=== PATIENT | female | born 1935 | race Caucasian/White ===

== ENCOUNTER 2017-06-01 18:53 | Emergency (ER) | payer MEDICARE ==
[2016-09-27 12:42] VITALS: BMI 19.8
[~2017-06-01 18:53] MED LIST: ACETAMINOPHEN325 MG PO; AFRIN NASAL SPR15 ML NASAL; ALBUTEROL2.5 MG/3 M UPD; ASPIRIN81 MG PO; ATIVAN0.5 MG PO; ATIVAN1 MG PO; BAYER CHEWABLE81 MG PO; BENAZEPRIL HCL10 MG PO; BENZONATATE200 MG PO; BROVANA15 MCG/2 M INH; CELEXA10 MG PO; CITRACAL + D E1 EACH PO; COLACE100 MG PO; DOXYCYCLINE HY100 M2 PO; DULCOLAX10 MG/SUPP RC; FEMARA2.5 MG PO; IMODIUM2 MG PO; IPRAT-ALBUT 0.5-3 ML UPD; KEFLEX250 MG PO; LOTREL 5/10 MG1 CAP PO; MUCINEX DM ER1 EAC1 PO; NEXIUM20 MG PO; NORVASC5 MG PO; PLAVIX75 MG PO; PRAVACHOL20 MG PO; PRAVACHOL80 MG PO; PROTONIX40 MG PO; PULMICORT0.5 MG/21 UPD; SALINE NASAL SP45 ML NASAL; SINGULAIR10 MG PO; STERAPRED 5MG 125 MG PO; TENORMIN25 MG PO
== END 2017-06-01 21:15 | disposition home or self-care (01) ==
LOC: D.ER 18:53
DX: G43.909 Migraine, unspecified, not intractable, without status migrainosus (principal); I10 Essential (primary) hypertension; Z86.73 Personal history of transient ischemic attack (TIA), and cerebral infarction without residual deficits

== ENCOUNTER 2018-05-21 07:28 | Inpatient (IN) | payer MEDICARE ==
[~2018-05-21] VITALS: Ht 167.6 cm; Wt 56.7 kg
--- NOTE | ~2018-05-21 | MORECARE ---
CASE MANAGEMENT DISCHARGE SUMMARY PATIENT: GODWIN BIRD UNIT: [id number] ADM DATE: 05/21/18 AGE: 83 : 36 SEX: F ROOM/BED: D.5272 AUTHOR: DOROTHEA, SHOPFITTER PHYSICIAN: REFERRING PHYSICIAN: JAREN CRUZ MD DATE OF SERVICE: 05/21/18 Discharge Plan Patient Name: GODWIN BIRD Facility: [facility]:[place] : 1935 Planned Disposition: Home Anticipated Discharge Date: 05/28/18 Discharge Date: Expected LOS: 7 Initial Reviewer: [email or web address] Initial Review Date: 05/28/2018 Generated: 05/28/18 5:16 pm Comments DCP- Discharge Planning Updated by [id number]: Crow Simental on 05/28/18 3:[address] Patient Name: GODWIN BIRD Admission Status: ER Accout number: [id number] Admission Date: 05-21-2018 : 1935 Admission Diagnosis:PNEUMONIA, UNSPECIFIED ORGANISM Attending: JAREN CRUZ Current LOS: 7 Anticipated DC Date: 05-28-2018 Planned Disposition: Home Primary Insurance: [employer] CHOICE PPO MCR ADVANT Discharge Planning Comments: * Is the patient Alert and Oriented? Yes 0 * How many steps to enterexit or inside your home? NONE 0 * PCP DR. STEIN 0 * Pharmacy [facility] 0 * Preadmission Environment Home with Family 0 * ADLs Partial Dependent 0 * Partial ADLs (Assistance needed) Medication Management 0 * Equipment Cane Walker 0 * Other Equipment [employer] - MEDICAL EQUIPMENT PROVIDER 0 * List name and contact numbers for known caregivers / representatives who currently or will assist patient after discharge: GODWIN GERMAN, DTR, 0 * Verbal permission to speak to the caregivers and representatives has been obtained from the patient. Yes 0 * Community resources currently utilized None 0 * Please name any agencies selected above. NONE 0 * Additional services required to return to the preadmission environment? No 0 * Can the patient safely return to the preadmission environment? Yes 0 * Has this patient been hospitalized within the prior 30 days at any hospital? No 0 CM MET WITH PT IN ROOM TO DISCUSS DISCHARGE PLANNING AND NEEDS. GODWIN BIRD provided verbal consent to discuss current and ongoing needs with/in the presence of: DAUGHTER, GODWIN. PT REPORTS LIVING AT HOME INDEPENDENTLY WITH HER BROTHER IN LAW; PT'S DAUGHTER ARRANGES MEDICATIONS IN PILL MINDER BOX AND PT TAKES HER MEDICATIONS INDEPENDENTLY AT HOME. PT HAS CANE AND WALKER FROM [facility]. PT HAS NO OUTSIDE SERVICES ASSISTING IN THE HOME. CM DISCUSSED AVAILABILITY OF HOME HEALTH, REHAB SERVICES AND MEDICAL EQUIPMENT. PT DENIES DISCHARGE NEEDS, REPORTS HER DAUGHTER WILL PICK HER UP FOR DISCHARGE HOME. IMPORTANT MESSAGE FROM MEDICARE PROVIDED AND EXPLAINED. CHART REVIEWED, PT HAS NO NEBULIZER, DISCHARGING HOME ON NEBULIZED MEDICATIONS. CM SPOKE TO PT AND DAUGHTER IN ROOM, THEY WILL EITHER PICK THE MACHINE UP FROM [facility] OR HAVE IT DELIVERED TO HOME; PT WILL MEDICAL SCREENER MEDICATIONS FROM HER PHARMACY. CM RECEIVED ORDER FOR NEBULIZER, CALLED [facility], , SPOKE TO ROBERT WHO WILL CALL PT'S DAUGHTER TO ARRANGE DELVERY OF NEBULIZER TODAY. CM FA[facility]ED [facility] AT [phone]. Perfect Bind Machine Operator: Crow Simental : DCPIA - Discharge Planning Initial Assessment Updated by [id number]: Crow Simental on 05/28/18 4:12 pm * Is the patient Alert and Oriented? Yes * How many steps to enterexit or inside your home? NONE * PCP DR. STEIN * Pharmacy [facility] * Preadmission Environment Home with Family * ADLs Partial Dependent * Partial ADLs (Assistance needed) Medication Management * Equipment Cane Walker * Other Equipment [employer] - MEDICAL EQUIPMENT PROVIDER * List name and contact numbers for known caregivers / representatives who currently or will assist patient after discharge: GODWIN GERMAN, JADONR, * Verbal permission to speak to the caregivers and representatives has been obtained from the patient. Yes * Community resources currently utilized None * Please name any agencies selected above. NONE * Additional services required to return to the preadmission environment? No * Can the patient safely return to the preadmission environment? Yes * Has this patient been hospitalized within the prior 30 days at any hospital? No External Providers External Provider: [facility] [place] [facility] Contact Date: 05/28/2018 Service Request Date: Service Type: Resolution: Reviewer: Comments: Coverage Notice Reviewer: [id number] - Crow Simental Notice Issued Date-Time: 05/28/2018 12:40 Notice Type: IM Discharge Notice Notice Delivered To: Patient Relationship to Patient: Manager Relocation Name: Delivery Method: HAND - Hand Delivered Deepthi Days: Prior Verbal Notification: Recipient Understood Notice: Yes Recipient Signature: Yes Med Rec Note Co-signed by Attending: Coverage Notice Comment: Patient Name: GODWIN BIRD Page [id number] All edits/amendments must be made on the electronic document DICTATION DATE: 05/28/181614 CHARGING CRANE OPERATOR: 05/28/181614 RPT#: [id number] DC DATE: STATUS: ADM IN [facility] [address] [place] [address] END OF REPORT
--- NOTE | ~2018-05-21 | CN ---
PATIENT NAME:GODWIN BIRD MEDICAL RECORD: [id number] : 37 LOCATION:D. D.2122 ADMIT DATE: 05/21/18 ACCOUNT: [id number] CONSULTING PHYSICIAN: ZIGGY MEDINA MD REFERRING PHYSICIAN: JAREN CRUZ MD DATE OF CONSULTATION: 05/21/2018 CONSULT REQUESTING PHYSICIAN: Jaren Cruz MD REASON FOR CONSULTATION: Pneumonia, left lower lobe. HISTORY OF PRESENT ILLNESS: Ms. Bird is an 83-year-old female. She is complaining of worsening shortness of breath for the last few days. She has a fever. She is coughing. The cough is productive of white yellow color sputum production. There is no hemoptysis. No wheezing. There is no associated nausea or vomiting. REVIEW OF SYSTEMS: As in history of present illness. PAST MEDICAL HISTORY: 1. History of CA of the lung, of the right upper lobe. 2. History of bilateral CA of breast. 3. History of cervical cancer. 4. Gastroesophageal reflux disease. 5. Ex-smoker. 6. History of cerebrovascular accident. PAST SURGICAL HISTORY: 1. She has a right upper lobe lobectomy. 2. She has bilateral mastectomy. 3. Lymph node resection. ALLERGIES: SHE IS ALLERGIC TO CIPRO AND LEVAQUIN. MEDICATIONS: The Finance Scholar is reviewed. PERSONAL AND SOCIAL HISTORY: The patient is an ex-smoker. She is a nondrinker. FAMILY HISTORY: Noncontributory. PHYSICAL EXAMINATION: GENERAL: The patient is lying comfortably. She is not in acute distress. VITAL SIGNS: The blood pressure is 104/51, pulse is 75, respiration is 18, temperature 98.6, SpO2 of 94% on 2 liters nasal cannula. HEENT: Conjunctivae are pink. Sclerae are not icteric. NECK: Supple. No JVD. CHEST: Excursion is minimal on both sides. There are crackles at the right base. There are wheeze on forceful expiration. HEART: Rhythm regular, normal sound, no murmur. ABDOMEN: Soft, bowel sounds present. No hepatosplenomegaly. RECTAL: Deferred. EXTREMITIES: No cyanosis, no clubbing, no pedal edema. SKIN: Warm, normal turgor. CENTRAL NERVOUS SYSTEM: The patient is awake and alert. There is no obvious cranial nerve abnormality. The gait was not tested. CONSULT REPORT [id number] [facility] DATA: CBC: The WBC is 15.9, hemoglobin 11.7, hematocrit 35.5, the platelet count is 380. Chemistry: Sodium 134, potassium is 4.3, BUN is 12, and creatinine 0.3. IMPRESSION: 1. Acute hypoxic respiratory failure. 2. Pneumonia, left lower lobe, most likely community-acquired pneumonia. 3. Leukocytosis. 4. Acute cough. 5. Ex-smoker, suspect chronic obstructive pulmonary disease. 6. History of carcinoma of the lung, of the right upper lobe status post right upper lobe lobectomy. 7. Gastroesophageal reflux disease. RECOMMENDATION: Continue Zithromax IV, Rocephin IV. Start on albuterol/ipratropium nebulizer and start Brovana and budesonide nebulizer. Mucinex DM 2 tablets b.i.d. Follow up labs and chest radiograph. Dr. Cruz, thank you for involving me in the care of Ms. Bird. TRANSINT:[id number] Voice Confirmation ID: [id number] DOCUMENT ID: [id number] ZIGGY MEDINA MD at 1110 CC: [id number] DICTATION DATE: 05/21/18 1626 SECURITY SYSTEM ADMINISTRATOR: 05/21/18 1726 ADM IN [place] [id number] [place] [address]
[~2018-05-21 07:28] MED LIST changes: -ATIVAN0.5 MG PO; +NEXIUM40 MG PO
[2018-05-21 08:53] LABS: ALBUMIN 2.4 g/dL (3.4-5.0); ALKALINE PHOSPHATASE 121 U/L (46-116); ALT (SGPT) 19 U/L (10-68); BILIRUBIN - TOTAL 0.84 mg/dL (0.2-1.3); CALC OSMOLALITY 267 mosm/kg (275-300); CALCIUM 8.1 mg/dL (8.5-10.1); CARBON DIOXIDE 22.9 mmol/L (21.0-32.0); CHLORIDE - SERUM 101 mmol/L (98-107); CKMB 0.7 U/L (0.0-3.6); CREATINE KINASE 99 UL (21-215); CREATININE - SERUM 0.7 mg/dL (0.6-1.3); GLUCOSE 107 mg/dL (74-106); POTASSIUM - SERUM 4.3 mmol/L (3.5-5.1); PRO BNP 1833 pg/mL (0-450); PROTEIN - SERUM 6.1 g/dL (6.4-8.2); SODIUM 134 mmol/L (136-145); TROPONIN-I < 0.017 ng/mL (0.000-0.060); UREA NITROGEN 12 mg/dL (7-18); eGFR NON AFRICAN AMERICAN 85 mL/min (90-120)
[2018-05-21 08:58] LABS: BASOPHILS 0.4 % (0-2); EOSINOPHILS 0.3 % (0-7); HEMATOCRIT 35.5 % (36.0-48.0); HEMOGLOBIN 11.7 g/dL (12-16); IMMATURE GRANULOCYTES 1.1 % (0-5); LYMPHOCYTES 8.7 % (15-50); MCH 25.7 pg (26.0-34.0); MEAN PLATELET VOLUME 9.2 fL (7.4-10.4); NEUTROPHILS 70.5 % (40-80); RBC 4.55 10x6/uL (4.00-5.40); RDW 15.8 % (11.5-14.5); WBC 15.9 10x3/uL (4.8-10.8)
[2018-05-21 09:02] LABS: PLATELET COUNT 380 10x3/uL (130-400)
[2018-05-21 09:03] LABS: APTT 22.5 SECONDS (22.8-39.4); INR 1.07 (0.85-1.17); PROTIME 13.5 SECONDS (11.6-15.0)
[2018-05-21 11:59] VITALS: BP 113/54
[2018-05-21] MEDS ORDERED: PRAVACHOL80 MG PO (12:29)
[2018-05-21] MEDS ORDERED: ALENDRONATE SOD70 MG PO (12:31)
[2018-05-21 12:40] VITALS: BP 99/47; BMI 21.6
[2018-05-21 15:56] VITALS: BP 109/70
[2018-05-21 21:52] VITALS: BP 87/43
[2018-05-22 01:17] VITALS: BP 94/52
[2018-05-22 04:00] VITALS: BP 98/50
[2018-05-22 06:00] LABS: BASOPHILS 0.4 % (0-2); EOSINOPHILS 0.4 % (0-7); HEMATOCRIT 30.5 % (36.0-48.0); IMMATURE GRANULOCYTES 1.2 % (0-5); LYMPHOCYTES 11.8 % (15-50); MCH 25.5 pg (26.0-34.0); MCHC 32.8 g/dL (31.0-37.0); MCV 77.8 fL (80.0-100.0); MEAN PLATELET VOLUME 8.8 fL (7.4-10.4); MONOCYTES 15.5 % (2-11); NEUTROPHILS 70.7 % (40-80); PLATELET COUNT 341 10x3/uL (130-400); RBC 3.92 10x6/uL (4.00-5.40)
[2018-05-22 06:17] LABS: CARBON DIOXIDE 25.7 mmol/L (21.0-32.0); CREATININE - SERUM 0.8 mg/dL (0.6-1.3); POTASSIUM - SERUM 3.7 mmol/L (3.5-5.1)
[2018-05-22 12:39] VITALS: Ht 167.6 cm; Wt 56.7 kg
[2018-05-22 15:57] VITALS: BP 101/54
[2018-05-22 21:32] VITALS: BP 93/59
[2018-05-23 01:30] VITALS: BP 115/65
[2018-05-23 06:03] VITALS: BP 113/58
[2018-05-23 08:26] VITALS: BP 104/53
[2018-05-23 12:27] VITALS: BP 101/52
[2018-05-23 16:40] VITALS: BP 111/65
[2018-05-23 21:17] VITALS: BP 110/60
[2018-05-24 01:26] VITALS: BP 111/59
[2018-05-24 05:39] VITALS: BP 109/56
[2018-05-24 08:00] VITALS: BP 125/74
[2018-05-24 08:57] VITALS: BP 130/69
[2018-05-24 11:51] VITALS: BP 139/69
[2018-05-24 15:51] VITALS: BP 126/78
[2018-05-25 04:00] VITALS: BP 113/60
[2018-05-25 08:05] VITALS: BP 104/57
[2018-05-25 11:18] VITALS: BP 95/56
[2018-05-25 15:14] VITALS: BP 117/67
[2018-05-25 20:30] VITALS: BP 124/67
[2018-05-26 00:30] VITALS: BP 116/64
[2018-05-26 04:30] VITALS: BP 121/68
[2018-05-26 08:46] VITALS: BP 139/72
[2018-05-26 11:45] VITALS: BP 111/60
[2018-05-26 15:59] VITALS: BP 116/65
[2018-05-26 20:00] VITALS: BP 117/51
[2018-05-27] VITALS: BP 124/60
[2018-05-27 05:58] LABS: BASOPHILS 0.4 % (0-2); EOSINOPHILS 1.9 % (0-7); HEMATOCRIT 30.7 % (36.0-48.0); HEMOGLOBIN 10.1 g/dL (12-16); IMMATURE GRANULOCYTES 2.1 % (0-5); LYMPHOCYTES 15.2 % (15-50); MCHC 32.9 g/dL (31.0-37.0); MCV 78.9 fL (80.0-100.0); MEAN PLATELET VOLUME 8.6 fL (7.4-10.4); MONOCYTES 9.5 % (2-11); NEUTROPHILS 70.9 % (40-80); RBC 3.89 10x6/uL (4.00-5.40); WBC 13.5 10x3/uL (4.8-10.8)
[2018-05-27 06:10] LABS: PLATELET COUNT 446 10x3/uL (130-400)
[2018-05-27 06:19] LABS: CALC OSMOLALITY 267 mosm/kg (275-300); CALCIUM 8.3 mg/dL (8.5-10.1); CARBON DIOXIDE 29.9 mmol/L (21.0-32.0); CHLORIDE - SERUM 102 mmol/L (98-107); CREATININE - SERUM 0.6 mg/dL (0.6-1.3); GLUCOSE 102 mg/dL (74-106); POTASSIUM - SERUM 3.8 mmol/L (3.5-5.1); SODIUM 135 mmol/L (136-145); UREA NITROGEN 7 mg/dL (7-18); eGFR NON AFRICAN AMERICAN > 90 mL/min (90-120)
[2018-05-27 06:37] VITALS: BP 122/62
[2018-05-27 07:30] VITALS: BP 139/73
[2018-05-27 11:00] VITALS: BP 130/61
[2018-05-27 15:47] VITALS: BP 112/75
[2018-05-27 20:00] VITALS: BP 118/56
[2018-05-28] VITALS: BP 122/60
[2018-05-28 04:00] VITALS: BP 100/38
[2018-05-28 04:42] LABS: BASOPHILS 0.7 % (0-2); EOSINOPHILS 2.4 % (0-7); HEMATOCRIT 30.7 % (36.0-48.0); HEMOGLOBIN 10.1 g/dL (12-16); IMMATURE GRANULOCYTES 1.7 % (0-5); LYMPHOCYTES 19.2 % (15-50); MCHC 32.9 g/dL (31.0-37.0); MCV 78.9 fL (80.0-100.0); MEAN PLATELET VOLUME 8.3 fL (7.4-10.4); MONOCYTES 8.5 % (2-11); NEUTROPHILS 67.5 % (40-80); PLATELET COUNT 431 10x3/uL (130-400); RBC 3.89 10x6/uL (4.00-5.40); RDW 15.9 % (11.5-14.5); WBC 10.8 10x3/uL (4.8-10.8)
[2018-05-28 05:05] LABS: CALC OSMOLALITY 269 mosm/kg (275-300); CALCIUM 8.3 mg/dL (8.5-10.1); CARBON DIOXIDE 28.6 mmol/L (21.0-32.0); CHLORIDE - SERUM 102 mmol/L (98-107); CREATININE - SERUM 0.7 mg/dL (0.6-1.3); GLUCOSE 105 mg/dL (74-106); POTASSIUM - SERUM 3.9 mmol/L (3.5-5.1); SODIUM 136 mmol/L (136-145); UREA NITROGEN 8 mg/dL (7-18); eGFR NON AFRICAN AMERICAN 85 mL/min (90-120)
[2018-05-28 07:57] VITALS: BP 112/59
[2018-05-28] MEDS ORDERED: IPRAT-ALBUT 0.5-3 ML INH (11:12)
[2018-05-28 12:02] VITALS: BP 100/56
== END 2018-05-28 17:30 | disposition home or self-care (01) | DRG 193 ==
LOC: D.ER 07:28 → D.EDHOLD 10:23 → D.M2 10:23
PROVIDERS: Family Medicine; Internal Medicine Nephrology
DX: J18.9 Pneumonia, unspecified organism (principal); J96.01 Acute respiratory failure with hypoxia; J44.0 Chronic obstructive pulmonary disease with (acute) lower respiratory infection; J98.11 Atelectasis; E78.5 Hyperlipidemia, unspecified; R13.10 Dysphagia, unspecified; K21.9 Gastro-esophageal reflux disease without esophagitis; D64.9 Anemia, unspecified; I71.4 Abdominal aortic aneurysm, without rupture; Z85.3 Personal history of malignant neoplasm of breast; Z85.41 Personal history of malignant neoplasm of cervix uteri; Z85.118 Personal history of other malignant neoplasm of bronchus and lung; Z86.73 Personal history of transient ischemic attack (TIA), and cerebral infarction without residual deficits

== ENCOUNTER → 2018-07-07 07:55 | Outpatient (CLI) | payer MEDICARE ==
[2018-05-22 12:39] VITALS: BMI 21.6
[~2018-07-07 07:55] MED LIST changes: +ALENDRONATE SOD70 MG PO; +IPRAT-ALBUT 0.5-3 ML INH
== END | disposition home or self-care (01) ==
LOC: D.RT 07:55
DX: J18.9 Pneumonia, unspecified organism (principal); J44.1 Chronic obstructive pulmonary disease with (acute) exacerbation

== ENCOUNTER 2018-11-26 17:13 | Inpatient (IN) | payer MEDICARE ==
[~2018-11-26] VITALS: Ht 152.4 cm; Wt 56.8 kg
[2018-11-26] MEDS ORDERED: MUCINEX DM ER1 EAC1 PO (17:26)
[2018-11-26] MEDS ORDERED: TESSALON PERLE100 MG PO (17:27)
[2018-11-26] MEDS ORDERED: PULMICORT0.5 MG/21 INH (17:27)
[2018-11-26] MEDS ORDERED: SINGULAIR10 MG PO (17:27)
[2018-11-26] MEDS ORDERED: FUROSEMIDE20 MG PO (17:28)
[2018-11-26] MEDS ORDERED: K-TAB10 MEQ PO (17:28)
[2018-11-26] MEDS ORDERED: VITAMIN D2000 UNIT PO (17:29)
[2018-11-26 18:20] LABS: MCHC 26.5 g/dL (31.0-37.0); MCV 55.4 fL (80.0-100.0); MEAN PLATELET VOLUME 8.9 fL (7.4-10.4); RBC 3.61 10x6/uL (4.00-5.40); RDW 20.8 % (11.5-14.5); WBC 7.9 10x3/uL (4.8-10.8)
--- NOTE | 2018-11-26 18:20 | NUR ---
LAB CALLED OF CRITIAL VALUE HEMATOCRIT 20.0 HEMOGLOBIN 5.3.
[2018-11-26 18:28] LABS: HEMOGLOBIN 5.3 g/dL (12-16); MCH 14.7 pg (26.0-34.0); PLATELET COUNT 570 10x3/uL (130-400)
[2018-11-26 18:31] LABS: ALBUMIN 3.5 g/dL (3.4-5.0); ANION GAP 17.6 mmol/L (8-16); BILIRUBIN - TOTAL 0.4 mg/dL (0.2-1.3); CALCIUM 8.7 mg/dL (8.5-10.1); CARBON DIOXIDE 22.8 mmol/L (21.0-32.0); POTASSIUM - SERUM 4.4 mmol/L (3.5-5.1); PROTEIN - SERUM 7.4 g/dL (6.4-8.2)
[2018-11-26 18:34] LABS: IMMATURE GRANULOCYTES 0.1 % (0-5)
[2018-11-26 19:22] LABS: LYMPHOCYTES 28 % (15-50); MONOCYTES 1 % (2-11); NEUTROPHILS 71 % (40-80)
[2018-11-26 19:23] LABS: ANISOCYTOSIS 1+; PLATELET ESTIMATE INCREASED; POLYCHROMASIA 1+
[2018-11-26 19:25] LABS: EOSINOPHILS 0 % (0-7)
[2018-11-26 19:26] LABS: BASOPHILS 0 % (0-2)
[2018-11-26 19:28] LABS: % SATURATION 2 % (15-55); IRON 12 ug/dl (35-150); TOTAL IRON BIND CAPACITY 568 ug/dl (260-445)
[2018-11-26 19:29] LABS: UNSAT IRON BIND CAPACITY 556 ug/dl (150-375)
--- NOTE | 2018-11-26 19:42 | NUR ---
PT REPORTS SHE IS COLD, PT GIVEN BLANKET, DENIES ANY FURTHER NEEDS AT THIS TIME. PT'S DAUGHTER AT BEDSIDE. WILL CONTINUE TO MONITOR.
[2018-11-26 19:45] LABS: FERRITIN 5 ng/mL (3-244); LDH 287 U/L (81-234)
--- NOTE | 2018-11-26 20:26 | NUR ---
ATTEMTPED TO CALL REPORT TO FLOOR, PLACED ON HOLD FOR OVER 5 MIN, WILL TRY AGAIN LATER.
--- NOTE | 2018-11-26 22:00 | NUR ---
PATIENT ARRIVED TO FLOOR VIA GURNEY. PATIENT ABLE TO WAOK FROM GURNEY TO BED. PATIENT IS ALERT AND ORIENTED. RESPIRATIONS ARE EVEN AND UNLABORED. PATIENT ORDERED 3 UNITS PRBC. FIRST UNIT STARTED IN ER AND INFUSING ON ARRIVAL. NO S/S OF DISTRESS. NO C/O PAIN. CALL LIGHT WITHIN REACH. WILL CPOC.
[2018-11-26 22:41] VITALS: BP 134/72; BMI 19.5
--- NOTE | 2018-11-26 23:50 | NUR ---
CALLED AND SPOKE WITH DR. DEB WATERS GIVEN TO RESTART HS MEDS. 1 MG ATIVAN, 80 MG PRAVASTATIN, 10 MG SINGULAR.
[2018-11-27] VITALS (8 sets, daily range): BP systolic 112–139; BP diastolic 63–79; Ht 152.4 cm; Wt 56.8 kg
--- NOTE | 2018-11-27 00:30 | NUR ---
2ND UNIT OF PRBC INFUSING. VITALS STABLE. PATIENT IS ALERT AND ORIENTED. RESPIRATIONS ARE EVEN AND UNLABORED. HS MEDS GIVEN. PATIENT DENIES NEEDS AT THIS TIME. CALL LIGHT WITHIN REACH. WILL CPOC.
--- NOTE | 2018-11-27 03:21 | NUR ---
3RD UNIT OF PRBC TRANSFUSING. VITALS STABLE. PATIENT IS ALERT AND ORIENTED. RESPIRATIONS ARE EVEN AND UNLABORED. NO S/S OF DISTRESS. NO C/O PAIN. CALL LIGHT WITHIN REACH. WILL CPOC.
[2018-11-27 06:38] LABS: BASOPHILS 2.1 % (0-2); EOSINOPHILS 1.6 % (0-7); IMMATURE GRANULOCYTES 0.2 % (0-5); LYMPHOCYTES 19.7 % (15-50); MCHC 30.5 g/dL (31.0-37.0); MEAN PLATELET VOLUME 8.2 fL (7.4-10.4); MONOCYTES 12.6 % (2-11); NEUTROPHILS 63.8 % (40-80); RBC 4.25 10x6/uL (4.00-5.40); RDW 27.8 % (11.5-14.5); WBC 6.1 10x3/uL (4.8-10.8)
[2018-11-27 06:48] LABS: ANION GAP 12.3 mmol/L (8-16); CALCIUM 8.2 mg/dL (8.5-10.1); CARBON DIOXIDE 23.7 mmol/L (21.0-32.0); CREATININE - SERUM 0.9 mg/dL (0.6-1.3)
[2018-11-27 07:03] LABS: HEMATOCRIT 27.2 % (36.0-48.0); HEMOGLOBIN 8.3 g/dL (12-16); MCH 19.5 pg (26.0-34.0); PLATELET COUNT 364 10x3/uL (130-400)
--- NOTE | 2018-11-27 07:30 | NUR ---
ASSESSMENT COMPLETED. ALERT AND ORIENTED. RIGHT FA SL. DENIES ANY NEEDS. SR UP WITH FAMILY AT BEDSIDE. LEFT ARM RESERVED. CALL LIGHT IN REACH
--- NOTE | 2018-11-27 11:59 | NUR ---
RESTING QUIETLY NAD NOTED
--- NOTE | 2018-11-27 18:47 | NUR ---
UP TO BR. DENIES ANY NEEDS, RIGHT FA WITH NS A T 50. NO NEEDS VOICED
--- NOTE | 2018-11-27 19:41 | NUR ---
RESUMING PATIENT CARE. PATIENT IS ALERT AND ORIENTED, RESTING COMFORTABLY IN BED. RESPIRATIONS ARE EVEN AND UNLABORED. NO S/S OF DISTRESS. NO C/O PAIN. CALL LIGHT WITHIN REACH. PATIENT BOARD UPDATED. WILL CPOC.
[2018-11-28] VITALS: BP 120/70
[2018-11-28 04:00] VITALS: BP 106/57
[2018-11-28 08:45] VITALS: BP 106/56
--- NOTE | 2018-11-28 09:25 | NUR ---
RESUMING PT CARE, PT LAYING IN BED ALERT AND ORIENTED X3, FAMILY AT BEDSIDE. CALL LIGHT IN REACH. PT C/O HEADACHE AND VISION CHANGES, SHE STATES THAT " MY VISION HAS BLURRY WAVEY LINES. HAS HX OF CVA. NEW ORDERS FROM JARVIS HAND APRN FOR CT WITH CONTRAST OF HEAD AND ALEVE BID PRN 500 MG. ORDERS NOTED. WILL CONTINUE TO MONITOR AND FOLLOW PLAN OF CARE.
[2018-11-28 12:01] VITALS: BP 106/55
[2018-11-28 13:46] LABS: ALBUMIN 3.2 g/dL (3.4-5.0); ANION GAP 12.7 mmol/L (8-16); BILIRUBIN - TOTAL 0.76 mg/dL (0.2-1.3); C-REACTIVE PROTEIN 0.5 mg/dL (0.0-0.9); CALCIUM 8.2 mg/dL (8.5-10.1); CARBON DIOXIDE 26.9 mmol/L (21.0-32.0); POTASSIUM - SERUM 3.6 mmol/L (3.5-5.1); PROTEIN - SERUM 6.7 g/dL (6.4-8.2)
[2018-11-28 13:56] LABS: HEMATOCRIT 32.1 % (36.0-48.0); HEMOGLOBIN 9.6 g/dL (12-16); LYMPHOCYTES 8.5 % (15-50); MCHC 29.9 g/dL (31.0-37.0); MEAN PLATELET VOLUME 8.7 fL (7.4-10.4); NEUTROPHILS 83.2 % (40-80); RBC 4.84 10x6/uL (4.00-5.40); RDW 28.5 % (11.5-14.5)
[2018-11-28 14:01] LABS: MCH 19.8 pg (26.0-34.0); MCV 66.3 fL (80.0-100.0); PLATELET COUNT 437 10x3/uL (130-400); WBC 8.3 10x3/uL (4.8-10.8)
[2018-11-28 14:58] LABS: ERYTHROCYTE SEDIMENTATION RATE 7 mm/hr (0-30)
--- NOTE | 2018-11-28 15:09 | EC ---
PATIENT:GODWIN BIRD DATE OF SERVICE: 11/26/18 SEX: F MEDICAL RECORD: [id number] DATE OF : [birth year] LOCATION:D.M2 D.213 AGE OF PATIENT: 83 ADMISSION DATE: 11/26/18 REFERRING PHYSICIAN: INTERPRETING PHYSICIAN: GHANSHYAM AMANDA MD ECHOCARDIOGRAM REPORT ECHO CHARGES 4 ECHO COMPLETE Date: 11/27/18 CLINICAL DIAGNOSIS: CHF ECHOCARDIOGRAPHIC MEASUREMENTS (adult normal given) AC root (d.<3.7cm) 4.2 cm LV Septum d (<1.2 cm> 1.6 cm Valve Excursion 1.2 cm LV Septum (systole) 1.7 cm Left Atria (s.<4.0cm> 5.4 cm LVPW d(<1.2cm) 1.5 cm RV (d.<2.3cm) 4.3 cm LVPW (sytole) 1.8 cm LV diastole(<5.6CM) 3.9 cm MV E-F(>70mm/sec) cm LV systole 2.6 cm LVOT Diameter 1.7 cm MV exc.(>10mm) 1.5 cm Est.ejection fraction (50-75%) % DOPPLER: LVIT cm/sec A 137 cm/sec E 122 cm/sec LA cm/sec RVSP 42 mmHg LVOT 79 cm/sec AOP1/2T m/s Asc. Ao 165 cm/sec RVOT 71 cm/sec RA cm/sec PA cm/sec AV Gradient Peak 10.84mmHg AV Mean 5.19 mmHg AV Area 1.1 cm MV Gradient Peak 9.88 mmHg MV Mean 4.65 mmHg MV Area cm COMMENTS: Admeasurer: Kailyn CORCORAN Data Quality Consultant: 1 Dr. Amanda TAPE# PACS Pericardial Effusion N DATE OF SERVICE: 11/27/2018 PROCEDURE: Echocardiogram. FINDINGS: 1. Left ventricular chamber size is within normal limits. Left ventricular systolic function is normal. Overall ejection fraction estimated at 50%. 2. Left atrium, right atrium, and right ventricle chamber sizes are dilated. Left atrium measures 5.4 cm. 3. Valvular structures: Aortic valve demonstrates mild calcific aortic ECHOCARDIOGRAM REPORT [id number] GODWIN BIRD stenosis. There is a gradient of 11 mm across the valve. The valve area calculates to 1.2 cm-squared. The remaining valvular structures have normal structure and motion. 4. Doppler interrogation elsewise reveals moderate mitral regurgitation, moderate tricuspid regurgitation, no other valvular insufficiency or stenosis. Pulmonary systolic pressure is estimated 42 mmHg. 5. No evidence of pericardial effusion or left ventricular thrombus. TRANSINT:[id number] Voice Confirmation ID: [id number] DOCUMENT ID: [id number] GHANSHYAM AMANDA MD at 1509 CC: [id number] DICTATION DATE: 11/28/18 1105 SPOON MAKER: 11/28/18 1216 ADM IN [place] [id number] [place] [id number]
[2018-11-28 15:57] VITALS: BP 122/68
--- NOTE | 2018-11-28 19:23 | MORECARE ---
CASE MANAGEMENT DISCHARGE SUMMARY PATIENT: GODWIN BIRD UNIT: [id number] ADM DATE: 11/26/18 AGE: 83 : 36 SEX: F ROOM/BED: D.2130 AUTHOR: ROSEMARIE LULOA PHYSICIAN: REFERRING PHYSICIAN: EDUARDO BOYD MD DATE OF SERVICE: 11/28/18 Discharge Plan Patient Name: GODWIN BIRD Facility: [facility]:[place] : 1935 Planned Disposition: Home Anticipated Discharge Date: 11/29/18 Discharge Date: Expected LOS: 3 Initial Reviewer: [email or web address] Initial Review Date: 11/28/2018 Generated: 11/28/18 8:23 pm DCPIA - Discharge Planning Initial Assessment Updated by [email or web address]: Crow Simental on 11/28/18 7:21 pm * Is the patient Alert and Oriented? Yes * How many steps to enter\exit or inside your home? NONE * PCP DR. STEIN * Pharmacy [facility]. * Preadmission Environment Home with Family * ADLs Partial Dependent * Partial ADLs (Assistance needed) Medication Management * Equipment Cane Walker * Other Equipment [employer] - MEDICAL EQUIPMENT PROVIDER * List name and contact numbers for known caregivers / representatives who currently or will assist patient after discharge: GODWIN GERMAN, DTR, * Verbal permission to speak to the caregivers and representatives has been obtained from the patient. Yes * Community resources currently utilized None * Please name any agencies selected above. NONE * Additional services required to return to the preadmission environment? No * Can the patient safely return to the preadmission environment? Yes * Has this patient been hospitalized within the prior 30 days at any hospital? No Patient Name: GODWIN BIRD Page [id number] at 1923 All edits/amendments must be made on the electronic document DICTATION DATE: 11/28/181922 TALENT RECRUITER: CAMPOS 11/28/181922 RPT#: [id number] DC DATE: STATUS: ADM IN [facility] [address] [place] [address] END OF REPORT
--- NOTE | 2018-11-28 19:33 | MORECARE ---
CASE MANAGEMENT DISCHARGE SUMMARY PATIENT: GODWIN BIRD UNIT: [id number] ADM DATE: 11/26/18 AGE: 83 : 36 SEX: F ROOM/BED: D.0660 AUTHOR: ARTEMIO,DOC PHYSICIAN: REFERRING PHYSICIAN: EDUARDO BOYD MD DATE OF SERVICE: 11/28/18 Discharge Plan Patient Name: GODWIN BIRD Facility: [facility]:[place] : 1935 Planned Disposition: Home Anticipated Discharge Date: 11/29/18 Discharge Date: Expected LOS: 3 Initial Reviewer: [email or web address] Initial Review Date: 11/28/2018 Generated: 11/28/18 8:33 pm Comments DCP- Discharge Planning Updated by [email or web address]: Crow Simental on 11/28/18 6:[address] Patient Name: GODWIN BIRD Admission Status: ER Accout number: [id number] Admission Date: 11-26-2018 : 1935 Admission Diagnosis:IRON DEFICIENCY ANEMIA, UNSPECIFIED Attending: EDUARDO BOYD Current LOS: 2 Anticipated DC Date: 11-29-2018 Planned Disposition: Home Primary Insurance: [employer] CHOICE PPO MCR ADVANT Discharge Planning Comments: CM RECEIVED FAX FOR PATIENT FROM HER INSURANCE COMPANY DENYING COVERAGE FOR THIS HOSPITAL STAY. CM MET WITH PT AND DAUGHTER IN ROOM. GODWIN BIRD provided verbal consent to discuss current and ongoing needs with/in the presence of: DAUGHTER, GODWIN SINGH. CM PROVIDED AND DISCUSSED THE NOTICE FROM HER INSURANCE COMPANY, COPY TO FILE AFTER PT SIGNED FOR RECEIPT. PT'S DAUGHTER STATES THAT SHE HAS A FAMILY MEMBER THAT HAS WORKED IN INSURANCE AND WILL CALL TO APPEAL THIS WITH INSURANCE PT AND FAMILY FEEL PT IS SICK AND NEEDS INPATIENT STAY, NOT OBSERVATION SERVICES. PT LIVES AT HOME WITH FAMILY DEPENDENT ON DAUGHTER TO ARRANGE HER MEDICATIONS. PT HAS CANE AND WALKER FROM [employer]. PT HAS NO OUTSIDE SERVICES ASSISTING IN THE HOME. PT PLANS TO DISCHARGE HOME TOMORROW, REPORTS HER DAUGHTER WILL PICK HER UP FOR DISCHARGE HOME. CM PROVIDED CM AND HOSPITAL SERVICE MEMBER CONTACT NUMBER. PT PLANS TO DISCHARGE HOME WITH FAMILY, NO REPORTED DISCHARGE NEEDS AT THIS TIME. CM TO FOLLOW AND ASSIST NEEDED. Roll Coverer: Crow Simental DCPIA - Discharge Planning Initial Assessment Updated by [id number]: Crow Simental on 11/28/18 7:21 pm * Is the patient Alert and Oriented? Yes * How many steps to enter\exit or inside your home? NONE * PCP DR. STEIN * Pharmacy [facility]. * Preadmission Environment Home with Family * ADLs Partial Dependent * Partial ADLs (Assistance needed) Medication Management * Equipment Cane Walker * Other Equipment [employer] - MEDICAL EQUIPMENT PROVIDER * List name and contact numbers for known caregivers / representatives who currently or will assist patient after discharge: GODWIN GERMAN, DTR, * Verbal permission to speak to the caregivers and representatives has been obtained from the patient. Yes * Community resources currently utilized None * Please name any agencies selected above. NONE * Additional services required to return to the preadmission environment? No * Can the patient safely return to the preadmission environment? Yes * Has this patient been hospitalized within the prior 30 days at any hospital? No Last DP export: 11/28/18 6:23 pm Patient Name: GODWIN BIRD Page [id number] at 1933 All edits/amendments must be made on the electronic document DICTATION DATE: 11/28/181932 SURGERY SCHEDULER: CAMPOS 11/28/181932 RPT#: [id number] DC DATE: STATUS: ADM IN [facility] [address] [place] [address] END OF REPORT
[2018-11-28 21:30] VITALS: BP 128/62
[2018-11-29 03:47] VITALS: BP 125/67
--- NOTE | 2018-11-29 05:47 | NUR ---
RESTING IN BED WITH EYES CLOSED. NO S/S OF DISTRESS OBSERVED, WILL CONT. POC.
[2018-11-29 06:20] LABS: BASOPHILS 0.4 % (0-2); EOSINOPHILS 0.3 % (0-7); HEMATOCRIT 26.6 % (36.0-48.0); HEMOGLOBIN 8.1 g/dL (12-16); IMMATURE GRANULOCYTES 0.2 % (0-5); LYMPHOCYTES 13.4 % (15-50); MCHC 30.5 g/dL (31.0-37.0); MEAN PLATELET VOLUME 8.9 fL (7.4-10.4); NEUTROPHILS 73.7 % (40-80); PLATELET COUNT 399 10x3/uL (130-400); RBC 4.15 10x6/uL (4.00-5.40); RDW 28.8 % (11.5-14.5)
[2018-11-29 06:22] LABS: MCH 19.5 pg (26.0-34.0); MCV 64.1 fL (80.0-100.0); WBC 11.7 10x3/uL (4.8-10.8)
[2018-11-29 06:54] LABS: ANION GAP 14.3 mmol/L (8-16); CALCIUM 7.9 mg/dL (8.5-10.1); CARBON DIOXIDE 24.3 mmol/L (21.0-32.0); CREATININE - SERUM 0.8 mg/dL (0.6-1.3); POTASSIUM - SERUM 3.6 mmol/L (3.5-5.1)
--- NOTE | 2018-11-29 07:30 | NUR ---
RECEIVED A/A/OX4. LAYING BED WATCHING TV WITH DAUGHTER AT BEDSICE. DENIES ANY PAIN OR DISCOMFORT WITH NO REQUESTS VOICED. DOES HAVE PROBLEM WITH EXP APHASIA BUT ABLE TO ANSWER MOST QUESTIONS. UP WITH ASST TO BATHROOM AND DAUGHTER HAS BEEN ASSISTING HER. BED IN LOW POSITION WITH SIDERAILS UP X 2 AND CALL LIGHT IN REACH. IV PATENT TO RIGHT FOREARM WITHOUT REDNESS OR SWELLING. WILL CPOC
[2018-11-29 08:46] VITALS: BP 112/68
--- NOTE | 2018-11-29 09:29 | NUR ---
RESTS WITH EYES CLOSED. IV PATENT. FAMILY AT BS. CALL LIGHT IN REACH. WILL MONITOR NEEDS.
--- NOTE | 2018-11-29 13:10 | NUR ---
URINE SPEC COLLECTED AND TAKEN TO LAB.
[2018-11-29 13:39] LABS: APPEARANCE CLEAR (CLEAR); BILIRUBIN NEGATIVE (NEGATIVE); COLOR YELLOW (YELLOW); GLUCOSE NEGATIVE (NEGATIVE); KETONE NEGATIVE (NEGATIVE); NITRITE NEGATIVE (NEGATIVE); PROTEIN NEGATIVE (NEGATIVE); SPECIFIC GRAVITY 1.015 (1.005-1.020); UROBILINOGEN NORMAL (NORMAL)
--- NOTE | 2018-11-29 13:39 | NUR ---
UP AMBULATORY IN HALLWAY WITH ASST. TOLERATED WELL. GAIT STEADY.
--- NOTE | 2018-11-29 16:15 | NUR ---
STOOL SPECIMEN COLLECTED AND TAKEN TO LAB.
[2018-11-29 16:25] VITALS: BP 118/66
--- NOTE | 2018-11-29 20:22 | NUR ---
RECIEVED UP AMBULATING AROUND ROOM. ALERT AND ORIENTED X4. HAS EXPRESSIVE APHASIA. HX OF CVA. IV TO RIGHT FA WITH NS INFUSING AT 50 ML/HR. NO REDNESS OR SWELLING TO SITE. DSG INTACT. DENIES ANY NEEDS.
[2018-11-30 00:30] VITALS: BP 118/68
--- NOTE | 2018-11-30 02:33 | NUR ---
PT DISCONNECTED HER IV AND STATED SHE DID NOT WANT IT HOOKED UP. IV SL AT THIS TIME.
[2018-11-30 04:30] VITALS: BP 120/66
[2018-11-30 05:37] LABS: BASOPHILS 0.4 % (0-2); EOSINOPHILS 0.1 % (0-7); HEMATOCRIT 27.5 % (36.0-48.0); HEMOGLOBIN 8.2 g/dL (12-16); IMMATURE GRANULOCYTES 0.3 % (0-5); LYMPHOCYTES 9.6 % (15-50); MCHC 29.8 g/dL (31.0-37.0); MCV 65.2 fL (80.0-100.0); MONOCYTES 9.1 % (2-11); NEUTROPHILS 80.5 % (40-80); PLATELET COUNT 392 10x3/uL (130-400); RBC 4.22 10x6/uL (4.00-5.40); RDW 29.7 % (11.5-14.5); WBC 12.9 10x3/uL (4.8-10.8)
[2018-11-30 05:39] LABS: MCH 19.4 pg (26.0-34.0)
[2018-11-30 06:05] LABS: CALC OSMOLALITY 276 mosm/kg (275-300); CARBON DIOXIDE 26.2 mmol/L (21.0-32.0); CHLORIDE - SERUM 104 mmol/L (98-107); CREATININE - SERUM 0.7 mg/dL (0.6-1.3); GLUCOSE 97 mg/dL (74-106); POTASSIUM - SERUM 3.7 mmol/L (3.5-5.1); SODIUM 138 mmol/L (136-145); UREA NITROGEN 14 mg/dL (7-18); eGFR NON AFRICAN AMERICAN 85 mL/min (90-120)
--- NOTE | 2018-11-30 07:21 | NUR ---
ROUNDING DONE WITH PATIENT RESTING ON RIGHT SIDE, RESP ARE EVEN. ON ROOM AIR. RIGHT FA PIV SEEN WITH SALINE LOCK. RES LEFT ARM SIGN UP, WILL ASK PATIENT WHEN AWAKE WHY. ON EP, K+ IS 3.7.
[2018-11-30 08:49] VITALS: BP 116/57
--- NOTE | 2018-11-30 11:18 | NUR ---
COMPLAINTS OF HEADACHE, I WENT TO PULL THE TYLENOL AND THERE IS NOT ENOUGH FOR THE CORRECT DOSE. I TALKED TO [place] IN THE PHARMACY.
[2018-11-30 11:55] VITALS: BP 106/54
--- NOTE | 2018-11-30 13:39 | NUR ---
VERBAL AND WRITTEN DISCHARGE INSTRUCTIONS GIVEN TO PATIENT. SALINE LOCK REMOVED WITH CATH TIP INTACT. DISCHARGED HOME VIA WHEELCHAIR.
--- NOTE | 2018-12-01 11:51 | MORECARE ---
CASE MANAGEMENT DISCHARGE SUMMARY PATIENT: GODWIN BIRD UNIT: [id number] ADM DATE: 11/26/18 AGE: 83 : 36 SEX: F ROOM/BED: D.0840 AUTHOR: ARTEMIO,DOC PHYSICIAN: REFERRING PHYSICIAN: EDUARDO BOYD MD DATE OF SERVICE: 12/01/18 Discharge Plan Patient Name: GODWIN BIRD Facility: [facility]:[place] : 1935 Planned Disposition: Home Anticipated Discharge Date: 11/30/18 Discharge Date: 11/30/2018 Expected LOS: 4 Initial Reviewer: [email or web address] Initial Review Date: 11/28/2018 Generated: 12/01/18 12:51 pm Comments DCP- Discharge Planning Updated by [email or web address]: Crow Simental on 11/28/18 6:[address] Patient Name: GODWIN BIRD Admission Status: ER Accout number: [id number] Admission Date: 11-26-2018 : 1935 Admission Diagnosis:IRON DEFICIENCY ANEMIA, UNSPECIFIED Attending: EDUARDO BOYD Current LOS: 2 Anticipated DC Date: 11-29-2018 Planned Disposition: Home Primary Insurance: [employer] CHOICE PPO MCR ADVANT Discharge Planning Comments: CM RECEIVED FAX FOR PATIENT FROM HER INSURANCE COMPANY DENYING COVERAGE FOR THIS HOSPITAL STAY. CM MET WITH PT AND DAUGHTER IN ROOM. GODWIN BIRD provided verbal consent to discuss current and ongoing needs with/in the presence of: DAUGHTER, GODWIN SINGH. CM PROVIDED AND DISCUSSED THE NOTICE FROM HER INSURANCE COMPANY, COPY TO FILE AFTER PT SIGNED FOR RECEIPT. PT'S DAUGHTER STATES THAT SHE HAS A FAMILY MEMBER THAT HAS WORKED IN INSURANCE AND WILL CALL TO APPEAL THIS WITH INSURANCE PT AND FAMILY FEEL PT IS SICK AND NEEDS INPATIENT STAY, NOT OBSERVATION SERVICES. PT LIVES AT HOME WITH FAMILY DEPENDENT ON DAUGHTER TO ARRANGE HER MEDICATIONS. PT HAS CANE AND WALKER FROM [employer]. PT HAS NO OUTSIDE SERVICES ASSISTING IN THE HOME. PT PLANS TO DISCHARGE HOME TOMORROW, REPORTS HER DAUGHTER WILL PICK HER UP FOR DISCHARGE HOME. CM PROVIDED CM AND HOSPITAL INOCULATOR CONTACT NUMBER. PT PLANS TO DISCHARGE HOME WITH FAMILY, NO REPORTED DISCHARGE NEEDS AT THIS TIME. CM TO FOLLOW AND ASSIST NEEDED. Food Service Worker [facility]: Crow Simental DCPIA - Discharge Planning Initial Assessment Updated by [id number]: Crow Simental on 11/28/18 7:21 pm * Is the patient Alert and Oriented? Yes * How many steps to enter\exit or inside your home? NONE * PCP DR. STEIN * Pharmacy [facility]. * Preadmission Environment Home with Family * ADLs Partial Dependent * Partial ADLs (Assistance needed) Medication Management * Equipment Cane Walker * Other Equipment [employer] - MEDICAL EQUIPMENT PROVIDER * List name and contact numbers for known caregivers / representatives who currently or will assist patient after discharge: GODWIN GERMAN, DTR, * Verbal permission to speak to the caregivers and representatives has been obtained from the patient. Yes * Community resources currently utilized None * Please name any agencies selected above. NONE * Additional services required to return to the preadmission environment? No * Can the patient safely return to the preadmission environment? Yes * Has this patient been hospitalized within the prior 30 days at any hospital? No Last DP export: 11/28/18 6:33 pm Patient Name: GODWIN BIRD Page [phone] at 1151 All edits/amendments must be made on the electronic document DICTATION DATE: 12/01/18 115 ALUM MIXER: CAMPOS 12/01/18 1150 RPT#: [id number] DC DATE:11/30/18 STATUS: DIS IN [facility] [address] [place] [address] END OF REPORT
== END 2018-11-30 13:43 | disposition home or self-care (01) | DRG 812 ==
LOC: D.ER 17:13 → D.M2 19:22 → D.EDHOLD 19:22 → D.M2 19:53
PROVIDERS: Family Medicine; ADMIT Internal Medicine Nephrology
DX: D50.9 Iron deficiency anemia, unspecified (principal); I10 Essential (primary) hypertension; E78.5 Hyperlipidemia, unspecified; I25.10 Atherosclerotic heart disease of native coronary artery without angina pectoris; J44.9 Chronic obstructive pulmonary disease, unspecified; K21.9 Gastro-esophageal reflux disease without esophagitis; R51 Headache; H53.8 Other visual disturbances; Z86.73 Personal history of transient ischemic attack (TIA), and cerebral infarction without residual deficits; Z85.3 Personal history of malignant neoplasm of breast; Z85.41 Personal history of malignant neoplasm of cervix uteri; Z85.118 Personal history of other malignant neoplasm of bronchus and lung

== ENCOUNTER 2018-12-10 09:59 | Observation (INO) | payer MEDICARE ==
[~2018-12-10] VITALS: Ht 152.4 cm; Wt 55.0 kg
--- NOTE | ~2018-12-10 | HEMODYNAMI ---
PATIENT:GODWIN BIRD MEDICAL RECORD: [id number] : 37 [id number] ADMISSION DATE: 12/10/18 Generatedon:12/11/20188:18 Patient name: GODWIN BIRD Patient #: [id number] SSN: : Date of study: 12/11/2018 Page: Of Hemodynamic Procedure Report Patient Data Patient Demographics Procedure consent was obtained First Name: GODWIN Gender: Female Last Name: MARGE : 1935 [facility] Initial: EZIO Age: 83 year(s) Patient #: [id number] Race: Unknown Additional ID: [id number] Contact details Address: [address] [address] State: [place] City: [place] Zip code: [address] Past Medical History Allergies Allergen Reaction Date Comments Reported Other allergy 12/11/2018 Ciprofloxacin, levofloxacin Admission Admission Data Admission Date: 12/10/2018 Admission Time: 13:20 Admit Source: Emergency department Room #: D.7 Procedure Procedure Types Cath Procedure Diagnostic Procedure [facility] w/Coronaries FFR/IVUS Intra-Coronary IVUS Initial Sedation Charges Moderate Sedation up to 15 minutes PCI Procedure Coronary Stent Coronary Stent Initial Procedure Description Procedure Date Procedure Date: 12/11/2018 Procedure Start Time: 7:56 Procedure End Time: 8:17 Procedure Staff Name Function Onofre Amanda MD Performing Physician Olimpia Ruvalcaba RN Nurse José Manuel López RN Nurse Dominga Khan RT Scrub Chinedu Pennington RT Scrub Deon Farris RT Monitor Procedure Data Cath Procedure Fluoroscopy Diagnostic fluoroscopy Total fluoroscopy Time: 5.8 time: 5.8 min min Diagnostic fluoroscopy Total fluoroscopy dose: 443 dose: 443 mGy mGy Contrast Material Contrast Material Type Amount (ml) Isovue 300 121 Entry Location Entry Primary Successful Side Size Upsize Upsize Entry Closure Succes sful Closure Location (Fr) 1 (Fr) 2 (Fr) Remarks Device Remarks Femoral Right 5 Fr 6 Fr Exoseal artery Short Estimated blood loss: 10 ml Diagnostic catheters Device Type Used For End Catheter Placement MULTIPACK Pigtail 5 Fr Procedure catheter MULTIPACK JL 4.0 5Fr Procedure catheter DIAGNOSTIC JL 6 5Fr Procedure catheter ([id number]) MULTIPACK 3DRC 5Fr Procedure catheter Procedure Complications No complications Procedure Medications Medication Administration Route Dosage 0.9% NaCl I.V. 100 ml/hr Oxygen etCO2 Nasal cannula 2 l/min Lidocaine 2% added to field 20 Heparin Flush Bag added to field 2 bags (1000units/500ml NS) Versed I.V. 2 mg Fentanyl I.V. 50 mcg Versed I.V. 2 mg Fentanyl I.V. 50 mcg Versed I.V. 2 mg Fentanyl I.V. 25 mcg Heparin Bolus I.V. 4000 units Hemodynamics Rest Heart Rate: 89 (bpm) Pressure Samples Time Site Value (mmHg) Purpose Heart Use Rate(bpm) 7:57 LV 113/16,21 Snapshot 85 7:57 LV 141/11,13 Snapshot 85 Snapshots Pre Cath Intra NCS Post Cath Vital Signs Time Heart Resp SPO2 etCO2 NIBP (mmHg) Rhythm Pain Sedation Rate (ipm) (%) (mmHg) Status Level (bpm) 7:31:09 91 18 100 27.5 137/79(126) NSR 0 (11) 10(A) , No pain 7:35:19 88 18 100 28.2 136/82(119) NSR 0 (11) 10(A) , No pain 7:39:24 92 16 100 30.5 129/94(114) NSR 0 (11) 10(A) , No pain 7:43:34 85 16 99 29 126/74(97) NSR 0 (11) 10(A) , No pain 7:47:44 80 14 99 23 124/72(109) NSR 0 (11) 10(A) , No pain 7:51:54 84 13 99 11.9 114/66(95) NSR 0 (11) 10(A) , No pain 7:55:58 85 17 99 32 122/74(105) NSR 0 (11) 10(A) , No pain 8:00:07 83 12 98 20.8 109/70(92) NSR 0 (11) 10(A) , No pain 8:04:11 85 13 98 23.8 119/71(97) NSR 0 (11) 10(A) , No pain 8:08:17 86 13 99 25.3 120/74(99) NSR 0 (11) 9(A) , No pain 8:12:23 89 15 98 33.5 130/71(107) NSR 0 (11) 10(A) , No pain 8:16:33 87 17 98 30.5 125/72(99) NSR 0 (11) 10(A) , No pain Medications Time Medication Route Dose Verified Delivered Reason Notes Effectiveness by by 7:30:58 0.9% NaCl I.V. 100 Onofre Olimpia used for ml/hr Vasiliy Ruvalcaba reversal print inspector 7:31:06 Oxygen etCO2 2 Onofre Olimpia used for Nasal l/min Vasiliy Ruvalcaba procedure cannula RN 7:32:10 Lidocaine 2% added 20ml Onofre Onofre for local to vial Vasiliy Amanda MD anesthetic field 7:32:23 Heparin Flush added 2 Onofre Onofre used for Bag to bags Vasiliy Amanda MD procedure (1000units/500ml field NS) 7:55:28 Versed I.V. 2 mg Onofre Olimpia for sedation Vasiliy Ruvalcaba RN 7:55:42 Fentanyl I.V. 50 Onofre Olimpia for sedation mcg Vasiliy Ruvalcaba RN 8:00:05 Fentanyl I.V. 50 Onofre Olimpia for sedation mcg Vasiliy Ruvalcaba RN 8:00:53 Versed I.V. 2 mg Onofre Olimpia for sedation Vasiliy Ruvalcaba RN 8:05:23 Versed I.V. 2 mg Onofre Olimpia for sedation Vasiliy Ruvalcaba RN 8:05:30 Fentanyl I.V. 25 Onofre Olimpia for sedation mcg Vasiliy Ruvalcaba RN 8:08:37 Heparin Bolus I.V. 4000 Onofre Olimpia for verifi ed units Vasiliy Ruvalcaba anticoagulation with Dr. GABRIELLE Amanda Procedure Log Time Note 7:04:10 Informed consent obtained and on chart 7:04:29 Admit Source: Emergency department 7:04:54 Diagnostic Cath status Elective 7:05:13 Time tracking: Regular hours (M-F 7:00 - 5:00) 7:05:16 Plan of Care:Hemodynamics will remain stable., Cardiac rhythm will remain stable., Comfort level will be maintained., Respiratory function will remain adequate., Patient/ family verbilizes understanding of procedure., Procedure tolerated without complication., Recovers from procedure without complications.. 7:05:56 José Manuel López RN sent for patient. Start room use. 7:24:02 Patient received from Med II to CCL 1 Alert and oriented. Tansferred to table in Supine position. 7:24:03 Warm blankets applied, and justen hugger turned on for patient comfort. 7:24:04 Correct patient and procedure confirmed by team. 7:24:04 ECG and BP/O2 sat monitors applied to patient. 7:24:06 Pre-procedure instructions explained to patient. 7:24:07 Pre-op teaching completed and patient verbalized understanding. 7:30:08 Vital chart was started 7:30:58 0.9% NaCl 100 ml/hr I.V. was administered by Olimpia Ruvalcaba RN; used for procedure; 7:31:06 Oxygen 2 l/min etCO2 Nasal cannula was administered by Olimpia Ruvalcaba RN; used for procedure; 7:32:10 Lidocaine 2% 20ml vial added to field was administered by Onofre Amanda MD; for local anesthetic; 7:32:23 Heparin Flush Bag (1000units/500ml NS) 2 bags added to field was administered by Onofre Amanda MD; used for procedure; 7:36:19 Baseline sample Acquired. 7:36:23 Rhythm: sinus rhythm 7:36:25 Full Disclosure recording started 7:36:28 Family in patients room. 7:36:30 Patient NPO since Midnight. 7:36:45 Patient allergic to Other allergyCiprofloxacin, levofloxacin 7:40:37 H&P Date Dictated: 12/10/2018 Within 30 days and on chart.. 7:40:42 Is the patient allergic to Iodine/contrast media? No. 7:40:43 Is patient on blood thinner?Yes 7:40:45 ACC The patient was administered the following blood thiners within the last 24 hours: ACCPlavix 7:40:46 Patient diabetic? No. 7:40:48 Previous problem with sedation/anesthesia? No ? 7:40:49 Snore? No 7:40:50 Sleep apnea? No 7:40:51 Deviated septum? No 7:40:52 Opens mouth fully? Yes 7:40:52 Sticks out tongue? Yes 7:40:57 Airway obstruction? Yes COPD 7:41:01 Dentures? Yes IN TIGHT 7:41:03 Pre procedure: right dorsailis pedis pulse 2+ Normal; easily identifiable; not easily obliterated 7:41:05 Patient pain scale 0/10 ?. 7:41:28 IV patent on arrival in right wrist with 0.9% NaCl at [facility]. 7:42:15 Lab Result : BUN 15 mg/dl 7:42:15 Lab Result : Creatinine 0.8 mg/dl 7:42:15 Lab Result : Hemoglobin 10.2 g/dl 7:42:15 Lab Result : Hematocrit 34 % 7:42:17 Lab results completed and on chart. 7:42:20 Right groin area was prepped with chlora-prep and draped in sterile fashion 7:42:21 Alarms reviewed by R. N. 7:42:21 Sharps counted by scrub and verified by R.N. 7:42:23 Use device set Femoral Dx 7:42:24 ACIST Syringe (01626) opened to sterile field. 7:42:25 Bag Decanter (2002S) opened to sterile field. 7:42:25 Medline Cath Pack ([id number]) opened to sterile field. 7:42:26 ACIST Hand Control (15146) opened to sterile field. 7:42:26 ACIST Manifold (75255) opened to sterile field. 7:42:27 Tegaderm 4 x 4 (1626W) opened to sterile field. 7:42:28 SHEATH 5FR Grapevine (YKR449) opened to sterile field. 7:42:29 DIAGNOSTIC WIRE .035 260cm J wire (570952) opened to sterile field. 7:42:30 DIAGNOSTIC Multipack 5Fr catheter set (HX4971) opened to sterile field. 7:51:57 Zero performed for pressure channel P1 7:54:23 Physician arrived 7:54:23 --------ALL STOP TIME OUT------ 7:54:23 Final Timeout: patient, procedure, and site verified with staff and physician. All members of the team are in agreement. 7:54:25 Right groin site verified by team. 7:54:28 Fire Safety Assessment: A--An alcohol-based skin anteseptic being used preoperatively., C--Open oxygen or nitrous oxide is being used., D--An ESU, laser, or fiber-optic light is being used. 7:54:30 Physical assessment completed. ASA score P 3 - A patient with severe systemic disease as per Onofre Amanda MD. 7:54:32 Sedation plan: IV Moderate Sedation Medication:Versed, Fentanyl 7:55:28 Versed 2 mg I.V. was administered by Olimpia Ruvalcaba RN; for sedation; 7:55:42 Fentanyl 50 mcg I.V. was administered by Olimpia Ruvalcaba RN; for sedation; 7:56:16 Procedure started. 7:56:19 Local anesthetic to right femoral artery with Lidocaine 2% by Onofre Amanda MD.INITIAL ACCESS ONLY 7:56:25 A 5 Fr sheath was inserted into the Right Femoral artery 7:56:46 A MULTIPACK Pigtail 5 Fr catheter was advanced over the wire and used for Procedure. 7:57:48 LV gram done using STEINER 7:57:50 Injector settings: Ml/sec: 10, Volume: 20, 7:57:52 LV hemodynamics recorded. 7:57:58 EF : 55 % 7:58:01 Catheter exchanged over wire. 7:58:05 A MULTIPACK JL 4.0 5Fr catheter was advanced over the wire and used for Procedure. 7:58:20 Catheter removed. unable to cannulate vessel. 7:58:52 A DIAGNOSTIC JL 6 5Fr catheter (077507W) was advanced over the wire and used for Procedure. 8:00:01 LCA angiography performed. 8:00:05 Fentanyl 50 mcg I.V. was administered by Olimpia Ruvalcaba RN; for sedation; 8:00:25 CHOICE PT Extra Support 182cm wire ([id number]) opened to sterile field. 8:00:26 SHEATH 6FR [place] (WYN824) opened to sterile field. 8:00:26 INFLATOR Merit BasixCompak (AB0950) opened to sterile field. 8:00:41 Catheter exchanged over wire. 8:00:46 A MULTIPACK 3DRC 5Fr catheter was advanced over the wire and used for Procedure. 8:00:53 Versed 2 mg I.V. was administered by Olimpia Ruvalcaba RN; for sedation; 8:01:42 RCA angiography performed. 8:02:12 Sheath upsized to a 6 Fr Short. 8:02:30 GUIDE 6FR EBU 4.5 catheter ([id number]) opened to sterile field. 8:02:31 [place] Eag[place] IVUS Catheter (80912H) opened to sterile field. 8:03:41 6 Fr EBU 4.5 guide catheter was inserted over the wire 8:03:47 CHOICE PT ES wire advanced. 8:04:44 Wire advanced across lesion. 8:04:46 IVUS catheter advanced over wire. 8:04:47 IVUS pass to LAD lesion performed. 8:05:23 Versed 2 mg I.V. was administered by Olimpia Ruvalcaba RN; for sedation; 8:05:30 Fentanyl 25 mcg I.V. was administered by Olimpia Ruvalcaba RN; for sedation; 8:07:30 IVUS catheter removed over wire. 8:08:37 Heparin Bolus 4000 units I.V. was administered by Olimpia Ruvalcaba RN; for anticoagulation; verified with Dr. Amanda 8:09:22 Place stent Inflation Number: 1 A INTEGRITY RX 3.5 x 22 stent ([id number]) was prepped and advanced across the Prox LAD. The stent was deployed at 15 DEVENDRA for 0:10 (min:sec). 8::42 Inflation number: 2 The stent balloon was then re-inflated across the Prox LAD to 17 DEVENDRA for 0:10 (min:sec). 8:10:05 Inflation number: 3 The stent balloon was then re-inflated across the Prox LAD to 13 DEVENDRA for 0:10 (min:sec). 8:12:22 Stent catheter was removed intact over wire. 8:12:22 Wire removed. 8:12:24 Guide catheter removed. 8:12:53 EXOSEAL 6Fr (EX600) opened to sterile field. 8:13:05 Sheath removed intact; hemostasis achieved with Exoseal to the Right Femoral artery. 8:13:42 Procedure ended.(Physican Out) 8:14:47 Fluoroscopy time 05.80 minutes. 8:14:51 Flurop Dose total: 443 8:14:51 Fluoroscopy dose: 443 mGy 8:15:10 Contrast amount:Isovue 300 121ml. 8:15:12 Sharps counted by scrub and verified by R.N. 8:15:12 Insertion/operative site no bleeding no hematoma. 8:15:14 Post-op/insertion site Right Femoral artery dressed using a 4 x 4 and Tegaderm. 8:15:22 Post right femoral artery:stable, soft, clean and dry 8:15:23 Post Procedure Pulses reassessed and unchanged 8:15:26 Post-procedure physical assessment completed. ASA score P 3 - A patient with severe systemic disease as per Onofre Amanda MD. 8:15:42 Post procedure rhythm: unchanged. 8:16:39 Estimated blood loss: 10 ml 8:16:40 Post procedure instruction explained to patient.Patient verbalizes understanding. 8:16:40 Patient needs reinforcement of post procedure teaching. 8:16:56 Procedure type changed to Cath procedure, Diagnostic procedure, LHC, LHC w/Coronaries, FFR/IVUS, Intra-Coronary IVUS Initial, Sedation Charges, Moderate Sedation up to 15 minutes, PCI procedure, Coronary Stent, Coronary Stent Initial 8:17:19 Procedure and supply charges have been captured, reviewed, submitted and are correct. 8:17:21 Procedure Complication : No complications 8:17:22 Vital chart was stopped 8:17:22 See physician's report for complete and final results. 8:17:24 Report given to Pre/Post Procedure Room. 8:17:26 Patient transfered to Pre/Post Procedure Room with Stretcher. 8:17:28 Procedure ended. 8:17:28 Full Disclosure recording stopped 8:17:32 End room use (Document Last) Intervention Summary Intervention Notes Time ActionType Lesion and Equipment Action# Pressure Duration Attributes Used 8:09:22 Place stent Prox LAD INTEGRITY RX 1 15 00:10 3.5 x 22 stent ([id number]) 8:09:42 Reinflate Prox LAD INTEGRITY RX 2 17 00:10 stent 3.5 x 22 balloon stent ([id number]) 8:10:05 Reinflate Prox LAD INTEGRITY RX 3 13 00:10 stent 3.5 x 22 balloon stent ([id number]) Device Usage Item Name Manufacture Quantity Catalog Number Hospital Part Current Mini mal Lot# / Charge Number Stock Stock Serial# Code ACIST Acist 1 27757 188704 573329 252603 20 Syringe WITOI (83334) [employer] Bag Decanter Microtek 1 923591 95642 880409 5 () Medical Inc. Medline Cath Medline 1 [id number] 165376 00615 715134 5 Pack ([id number]) ACIST Hand Acist 1 97937 609945 541300 094896 5 Control Medical (69517) Systems Inc ACIST Acist 1 64078 446350 292829 872384 5 Manifold Medical (56772) Systems Inc Tegaderm 4 x 3M 1 1626W 384862 755740 562786 5 4 (1626W) SHEATH 5FR Terumo 1 ECU962 713014 177997 491162 5 Grapevine (AVA102) DIAGNOSTIC [facility] 1 987794 140607 731387 369919 30 WIRE .035 260cm J wire (721298) DIAGNOSTIC Cardinal 1 MQ0318 317955 31227 994907 30 Multipack Health 5Fr catheter set (HS6154) MULTIPACK Cardinal 1 063510 5 Pigtail 5 Fr Health catheter MULTIPACK JL Cardinal 1 244792 5 4.0 5Fr Health catheter DIAGNOSTIC Cardinal 1 [id number] 713802 924784 742661 5 JL 6 5Fr Health catheter (033450F) CHOICE PT Primghar 1 [id number] 466708 777841 334740 5 Extra Scientific Support 182cm wire ([id number]) SHEATH 6FR Terumo 1 ZMW750 998855 009278 096526 40 [place]rapevine (QLZ700) INFLATOR Merit 1 AQ5347 613263 720911 865180 15 [facility] Medical BasixCompak (CA8728) MULTIPACK Cardinal 1 544544 5 3DRC 5Fr Health catheter GUIDE 6FR Medtronic 1 [id number] 011289 89769 558520 0 EBU 4.5 catheter (BH1DCB52) [place] 1 72547Y 163423 345417 076933 8 [place] Eagleye IVUS Catheter (22782A) INTEGRITY RX Medtronic 1 [id number] 355019 446992 544102 5 [id number] 3.5 x 22 stent ([id number]) EXOSEAL 6Fr Cardinal 1 EX600 105753 081359 964942 10 (EX600) Health Signature Audit [place] Stage Time Signature Unsigned Intra-Procedure 12/11/2018 Deon Farris 8:18:06 AM RT(R) Signatures Monitor : Deon Farris RT Signature : Date : Time : [place] [address] [place] [address]
[~2018-12-10 09:59] MED LIST changes: +FUROSEMIDE20 MG PO; +K-TAB10 MEQ PO; +PULMICORT0.5 MG/21 INH; +TESSALON PERLE100 MG PO; +VITAMIN D2000 UNIT PO
[2018-12-10 11:33] LABS: EOSINOPHILS 1.3 % (0-7); HEMOGLOBIN 10.2 g/dL (12-16); IMMATURE GRANULOCYTES 0.1 % (0-5); LYMPHOCYTES 18.3 % (15-50); MCH 21.2 pg (26.0-34.0); MCV 70.5 fL (80.0-100.0); MONOCYTES 12.3 % (2-11); PLATELET COUNT 352 10x3/uL (130-400); RBC 4.82 10x6/uL (4.00-5.40); WBC 7.5 10x3/uL (4.8-10.8)
[2018-12-10 11:55] LABS: ALBUMIN 3.1 g/dL (3.4-5.0); ALKALINE PHOSPHATASE 62 U/L (46-116); ALT (SGPT) 13 U/L (10-68); BILIRUBIN - TOTAL 0.51 mg/dL (0.2-1.3); CALC OSMOLALITY 270 mosm/kg (275-300); CALCIUM 8.7 mg/dL (8.5-10.1); CARBON DIOXIDE 23.8 mmol/L (21.0-32.0); CHLORIDE - SERUM 99 mmol/L (98-107); CREATININE - SERUM 0.8 mg/dL (0.6-1.3); GLUCOSE 107 mg/dL (74-106); POTASSIUM - SERUM 4.2 mmol/L (3.5-5.1); PROTEIN - SERUM 7.1 g/dL (6.4-8.2); SODIUM 135 mmol/L (136-145); UREA NITROGEN 15 mg/dL (7-18); eGFR NON AFRICAN AMERICAN 73 mL/min (90-120)
[2018-12-10 12:00] VITALS: BP 118/92
[2018-12-10 12:06] LABS: CKMB 1.5 U/L (0.0-3.6); CREATINE KINASE 45 UL (21-215); MAGNESIUM - SERUM 1.9 mg/dL (1.8-2.4); TROPONIN-I 0.023 ng/mL (0.000-0.060)
[2018-12-10 12:24] LABS: APTT 35.1 SECONDS (22.8-39.4); INR 1.2 (0.85-1.17); PROTIME 14.7 SECONDS (11.6-15.0)
--- NOTE | 2018-12-10 14:43 | NUR ---
PT ALERT AND ORIENTED, ASSISTED TO THE BATHROOM AT THIS TIME. PT ABLE TO AMBULATE INDEPENDENTLY WITH MINIMAL ASSIST. PT AND FAMILY MEMBER AT THE BEDSIDE AWARE THAT PT IS BEING ADMITTED TO [facility], CURRENTLY AWAITING BED ASSIGNMENT. CALL LIGHT IN REACH, WILL CONTINUE TO MONITOR.
[2018-12-10 15:46] VITALS: BP 151/78
[2018-12-10 17:23] VITALS: BP 125/78; Ht 152.4 cm; Wt 55.0 kg
--- NOTE | 2018-12-10 19:39 | NUR ---
RESUMED CARE OF PT, LYING IN BED RESPIRATIONS EVEN AND UNLABORED ON ROOM AIR. 74 SR ON TELEMETRY. RIGHT FOREARM SALINE LOCKED. CALL LIGHT IN REACH. SEE NURSE ASSESSMENT.
[2018-12-10 20:00] VITALS: BP 132/68
[2018-12-11 00:43] VITALS: BP 106/59
[2018-12-11 04:00] VITALS: BP 122/61
--- NOTE | 2018-12-11 07:36 | NUR ---
PRE-OPS GIVEN. TO WAREHOUSE DRIVER BY BED.
[2018-12-11 07:58] VITALS: BP 121/64
--- NOTE | 2018-12-11 08:45 | NUR ---
VSS. RIGHT GROIN DRESSING C/D/I. NO S/S OF HEMATOMA NOTED. RIGHT PEDAL PULSE PALPABLE.
--- NOTE | 2018-12-11 09:18 | NUR ---
VSS. RIGHT GROIN DRESSING C/D/I. NO S/S OF HEMATOMA NOTED. RIGHT PEDAL PULSE PALPABLE.
--- NOTE | 2018-12-11 09:50 | NUR ---
PT RESTING COMFORTABLY. RIGHT GROIN DRESSING C/D/I. NO S/S OF HEMATOMA NOTED. VSS.
--- NOTE | 2018-12-11 10:20 | NUR ---
RIGHT GROIN DRESSING C/D/I. NO S/S OF HEMATOMA NOTED. VSS. RIGHT PEDAL PULSE PRESENT.
--- NOTE | 2018-12-11 11:15 | NUR ---
RIGHT GROIN DRESSING C/D/I. NO S/S OF HEMATOMA NOTED. HEAD OF BED INC TO 30 DEGREES. PT TOLERATED WELL. VSS. SET UP WITH SANDWICH TRAY AND DRINK. NO OTHER NEEDS AT THIS TIME. FAMILY AT BEDSIDE.
--- NOTE | 2018-12-11 11:48 | NUR ---
RIGHT WRIST PIV D/C'D WITH CATH TIP INTACT. PT TOLERATED WELL. PT INSTRUCTED TO GET UP AND GET DRESSED. RIGHT GROIN DRESSING C/D/I. NO S/S OF HEMATOMA NOTED. RIGHT PEDAL PULSE PALPABLE. FAMILY AT BEDSIDE TO ASSIST.
--- NOTE | 2018-12-11 11:52 | NUR ---
PT TO RESTROOM AND VOIDED WITHOUT DIFFICULTY. DISCUSSED DISCHARGE INSTRUCTIONS WITH PT AND PT'S FAMILY. THEY VOICED UNDERSTANDING.
--- NOTE | 2018-12-11 12:00 | NUR ---
PT TAKEN OUT BY WHEELCHAIR TO VEHICLE. ALL BELONGINGS AND PAPERWORK IN HAND. NO S/S OF DISTRESS NOTED.
--- NOTE | 2018-12-15 11:45 | DS ---
PATIENT:GODWIN BIRD :37 MEDICAL RECORD: [id number] DISCHARGE SUMMARY ADMISSION DATE: 12/10/18 DISCHARGE DATE: 12/11/18 DATE OF SERVICE: 12/11/2018 DIAGNOSES: 1. Angina. 2. Coronary artery disease. 3. PTCA and stent of LAD this admission. 4. Ascending aortic aneurysm - peripheral vascular disease. 5. Hypertension. 6. Hyperlipidemia. HOSPITAL COURSE: Ms. Bird presents with chest pain and anginal symptomatology, found to have significant disease of the LAD, underwent successful PTCA and stent of the LAD. Had an uneventful postop course. Discharged home with the addition of aspirin and Plavix to her medical regimen. Follow up with [facility] in 1 month. TRANSINT:[id number] Voice Confirmation ID: [id number] DOCUMENT ID: [id number] GHANSHYAM HEREDIA MD at 1145 CC: [id number] DICTATION DATE: 12/11/18 0815 CHILD ADOLESCENT PSYCHIATRIST: 12/12/18 0124 DIS IN 12/11/18 [address] [place] [address]
--- NOTE | 2018-12-15 11:45 | OP ---
PATIENT NAME: GODWIN BIRD MEDICAL RECORD: [id number] :37 LOCATION[facility] ADMISSION DATE:12/10/18 SURGEON: GHANSHYAM HEREDIA MD DATE OF OPERATION: 12/11/2018 PROCEDURES: 1. PTCA and stent of LAD. 2. Intravascular ultrasound. 3. Left heart catheterization. 4. Selective coronary angiography. 5. Left ventriculogram. INDICATIONS: Angina and coronary artery disease. PROCEDURE IN DETAIL: After informed consent was obtained and after a detailed explanation of risks, benefits as well as alternative therapies, the patient elected to proceed with angiogram and angioplasty. The right femoral area was prepped and draped in normal sterile fashion. Right femoral artery was cannulated via modified Seldinger technique with placement of 6-Amharic sheath. All catheters exchanged through this sheath. FINDINGS: The left ventriculogram was performed in standard 30-degree STEINER view, reveals good cardiac wall motion throughout all segments. Overall ejection fraction estimated 60%. SELECTIVE CORONARY ANGIOGRAPHY: 1. The left main has no significant angiographic disease. 2. The left anterior descending has a previously placed stent that is widely patent; however, intravascular ultrasound reveals that there is 80% stenosis proximal to that. 3. The left circumflex has mild irregularities, but no flow-limiting stenosis. 3. The right coronary has mild irregularities, but no flow-limiting stenosis. PTCA AND STENT OF THE LAD: The stent used is a 3.5 x 22-mm Integrity. Result was 0% residual stenosis. Aortic root angiography was performed. There is an aneurysm at approximately 5 cm of ascending aortic root. OVERALL IMPRESSION: Successful PTCA and stent of the LAD going from 80% initial stenosis to 0% residual. TRANSINT:[id number] Voice Confirmation ID: [id number] DOCUMENT ID: [id number] GHANSHYAM HEREDIA MD at 1145 CC: [id number] DICTATION DATE: 12/11/18815 STUDENT SUCCESS COUNSELOR: 12/11/18 0930 DIS IN 12/11/18 [facility] [address] [place] [address]
== END 2018-12-11 12:00 | disposition home or self-care (01) ==
LOC: D.ER 09:59 → D.CLR 13:20 → OBSVTIME 13:20 → D.EDHOLD 13:20 → D.M2 14:45 → D.CLR 12-11 08:27
PROVIDERS: Family Medicine; ADMIT Internal Medicine Interventional Cardiology
DX: I25.119 Atherosclerotic heart disease of native coronary artery with unspecified angina pectoris (principal); Q25.43 Congenital aneurysm of aorta; I73.9 Peripheral vascular disease, unspecified; I10 Essential (primary) hypertension; E78.5 Hyperlipidemia, unspecified

== ENCOUNTER → 2018-12-30 09:43 | Outpatient (CLI) | payer MEDICARE ==
[2018-12-10 17:23] VITALS: BMI 23.6
== END | disposition home or self-care (01) ==
LOC: D.CT 09:43
PROVIDERS: ATTEND Internal Medicine Interventional Cardiology
DX: I71.4 Abdominal aortic aneurysm, without rupture (principal); I25.10 Atherosclerotic heart disease of native coronary artery without angina pectoris; J47.9 Bronchiectasis, uncomplicated

== ENCOUNTER 2019-02-18 13:20 | Emergency (ER) | payer MEDICARE ==
[~2019-02-18] VITALS: Ht 152.4 cm; Wt 51.4 kg
[2019-02-18 13:23] VITALS: Ht 152.4 cm; Wt 51.4 kg
[2019-02-18] MEDS ORDERED: FERROUS SULFAT325 MG PO (13:28)
[2019-02-18] MEDS ORDERED: AUGMENTIN 875-11 TAB PO (17:44)
[2019-02-18] MEDS ORDERED: TESSALON PERLE100 MG PO (17:44)
[2019-02-18] MEDS ORDERED: FLUTICASONE PRO16 GM NASAL (17:44)
[2019-02-18 18:18] VITALS: BP 143/89
== END 2019-02-18 18:04 | disposition home or self-care (01) ==
LOC: D.ER 13:20
DX: J01.90 Acute sinusitis, unspecified (principal); J44.9 Chronic obstructive pulmonary disease, unspecified; I10 Essential (primary) hypertension; K21.9 Gastro-esophageal reflux disease without esophagitis

== ENCOUNTER 2019-06-04 13:35 | Emergency (ER) | payer MEDICARE ==
[~2019-06-04] VITALS: Ht 152.4 cm; Wt 51.4 kg
[~2019-06-04 13:35] MED LIST changes: +AUGMENTIN 875-11 TAB PO; +FERROUS SULFAT325 MG PO; +FLUTICASONE PRO16 GM NASAL
[2019-06-04 13:52] VITALS: Ht 152.4 cm; Wt 51.4 kg
[2019-06-04 14:30] LABS: BASOPHILS 0.6 % (0-2); EOSINOPHILS 1.5 % (0-7); HEMATOCRIT 37.2 % (36.0-48.0); HEMOGLOBIN 12.3 g/dL (12-16); IMMATURE GRANULOCYTES 0.2 % (0-5); LYMPHOCYTES 17.8 % (15-50); MCH 27.6 pg (26.0-34.0); MCHC 33.1 g/dL (31.0-37.0); MCV 83.6 fL (80.0-100.0); MEAN PLATELET VOLUME 8.5 fL (7.4-10.4); MONOCYTES 10.9 % (2-11); PLATELET COUNT 344 10x3/uL (130-400); RBC 4.45 10x6/uL (4.00-5.40); RDW 16.1 % (11.5-14.5); WBC 9.3 10x3/uL (4.8-10.8)
[2019-06-04 14:48] LABS: INR 1.05 (0.85-1.17); PROTIME 13.2 SECONDS (11.6-15.0)
[2019-06-04 14:50] LABS: ALBUMIN 3.2 g/dL (3.4-5.0); ALKALINE PHOSPHATASE 64 U/L (46-116); ALT (SGPT) 15 U/L (10-68); BILIRUBIN - TOTAL 0.29 mg/dL (0.2-1.3); CALC OSMOLALITY 273 mosm/kg (275-300); CALCIUM 8.9 mg/dL (8.5-10.1); CARBON DIOXIDE 28.5 mmol/L (21.0-32.0); CHLORIDE - SERUM 101 mmol/L (98-107); CREATININE - SERUM 0.7 mg/dL (0.6-1.3); GLUCOSE 104 mg/dL (74-106); PROTEIN - SERUM 6.8 g/dL (6.4-8.2); SODIUM 136 mmol/L (136-145); UREA NITROGEN 17 mg/dL (7-18); eGFR NON AFRICAN AMERICAN 85 mL/min (90-120)
[2019-06-04] MEDS ORDERED: ZITHROMAX TRI-500 MG PO (18:24)
[2019-06-04] MEDS ORDERED: OMNICEF300 MG PO (18:24)
[2019-06-04 18:51] VITALS: BP 140/72
== END 2019-06-04 18:52 | disposition home or self-care (01) ==
LOC: D.ER 13:35
PROVIDERS: Family Medicine
DX: J18.9 Pneumonia, unspecified organism (principal); R04.2 Hemoptysis; Z86.73 Personal history of transient ischemic attack (TIA), and cerebral infarction without residual deficits; J44.0 Chronic obstructive pulmonary disease with (acute) lower respiratory infection; K21.9 Gastro-esophageal reflux disease without esophagitis

== ENCOUNTER → 2019-07-29 08:16 | Outpatient (CLI) | payer MEDICARE ==
[2019-06-04 13:52] VITALS: BMI 22.1
[~2019-07-29 08:16] MED LIST changes: +OMNICEF300 MG PO; +ZITHROMAX TRI-500 MG PO
[2019-07-29 10:21] LABS: BASOPHILS 0.6 % (0-2); HEMATOCRIT 39.9 % (36.0-48.0); HEMOGLOBIN 13.2 g/dL (12-16); IMMATURE GRANULOCYTES 0.2 % (0-5); LYMPHOCYTES 19.9 % (15-50); MCHC 33.1 g/dL (31.0-37.0); MCV 87.7 fL (80.0-100.0); MEAN PLATELET VOLUME 8.4 fL (7.4-10.4); MONOCYTES 8.9 % (2-11); NEUTROPHILS 68.4 % (40-80); PLATELET COUNT 362 10x3/uL (130-400); RBC 4.55 10x6/uL (4.00-5.40); RDW 14.6 % (11.5-14.5); WBC 9.7 10x3/uL (4.8-10.8)
[2019-07-30 10:10] LABS: IMMUNOGLOBULIN A 281 mg/dL (64-422); IMMUNOGLOBULIN G 1221 mg/dL (700-1600)
[2019-07-31 06:09] LABS: IGG SUBCLASS 1 780 mg/dL (248-810); IGG SUBCLASS 2 191 mg/dL (130-555); IGG SUBCLASS 3 149 mg/dL (15-102); IGG SUBCLASS 4 31 mg/dL (2-96); IGGS - IGG SERUM 1212 mg/dL (700-1600)
[2019-08-02 11:08] LABS: IMMUNOGLOBULIN E 31 IU/mL (6-495)
== END | disposition home or self-care (01) ==
LOC: D.RT 08:16
PROVIDERS: ATTEND Internal Medicine Pulmonary Disease
DX: J44.9 Chronic obstructive pulmonary disease, unspecified (principal)

== ENCOUNTER 2020-05-30 15:57 | Inpatient (IN) | payer MEDICARE ==
[~2020-05-30] VITALS: Ht 154.9 cm; Wt 47.2 kg
[2020-05-30 17:08] VITALS: BP 128/71; BMI 19.7
[2020-05-30 17:12] LABS: BASOPHILS 0.6 % (0-2); EOSINOPHILS 0.9 % (0-7); HEMATOCRIT 39.3 % (36.0-48.0); HEMOGLOBIN 12.9 g/dL (12-16); IMMATURE GRANULOCYTES 0.5 % (0-5); LYMPHOCYTES 17.3 % (15-50); MCHC 32.8 g/dL (31.0-37.0); MCV 85.4 fL (80.0-100.0); MEAN PLATELET VOLUME 8.7 fL (7.4-10.4); MONOCYTES 10.9 % (2-11); NEUTROPHILS 69.8 % (40-80); PLATELET COUNT 312 10x3/uL (130-400); RDW 13.9 % (11.5-14.5); WBC 11.5 10x3/uL (4.8-10.8)
[2020-05-30 17:17] LABS: ANION GAP 12.5 mmol/L (8-16); CALCIUM 8.8 mg/dL (8.5-10.1); CARBON DIOXIDE 25.9 mmol/L (21.0-32.0); CREATININE - SERUM 0.8 mg/dL (0.6-1.3); POTASSIUM - SERUM 4.4 mmol/L (3.5-5.1)
[2020-05-30 17:22] LABS: ALBUMIN 2.9 g/dL (3.4-5.0); BILIRUBIN - TOTAL 0.36 mg/dL (0.2-1.3); PROTEIN - SERUM 6.6 g/dL (6.4-8.2)
[2020-05-30] MEDS ORDERED: ALENDRONAT70 MG/75 M PO (18:46)
[2020-05-30] MEDS ORDERED: PULMICORT0.5 MG/21 INH (18:47)
[2020-05-30] MEDS ORDERED: FERROUS SULFAT325 MG PO (18:48)
[2020-05-30] MEDS ORDERED: GABAPENTIN100 MG PO (19:19)
[2020-05-30 20:00] VITALS: BP 174/76
--- NOTE | 2020-05-30 20:10 | NUR ---
LYING IN BED. ALERT AND ORIENTED X4. FORGETFUL/CONFUSED AT TIMES. DAUGHTER AT BEDSIDE. 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 RESP IRREG. PROD COUGH NOTED WITH YELLOW SPUTUM. INSTRUCTED TO SPIT IN SPECIMENT CONTAINER FOR CULTURE. REPORTS BLOODY SPUTUM BUT NONE SEEN. TELEMETRY SHOWS SR WITH RATE OF 77. DENIES PAIN. NS @ 10 MLHR INFUSING IN RT FOREARM. LT ARM RESERVE. SR ELEVATED X2. CL IN REACH.
[2020-05-30 20:20] LABS: PROTIME 13.2 SECONDS (11.6-15.0)
[2020-05-31] VITALS: BP 168/74
--- NOTE | 2020-05-31 02:40 | NUR ---
ASSISTED UP TO BR TO VOID. GAIT IS SLIGHTLY UNSTEADY.
[2020-05-31 04:00] VITALS: BP 172/67
[2020-05-31 06:37] LABS: ALBUMIN 2.5 g/dL (3.4-5.0); ALKALINE PHOSPHATASE 55 U/L (30-120); ALT (SGPT) 19 U/L (10-68); BILIRUBIN - TOTAL 0.44 mg/dL (0.2-1.3); CALC OSMOLALITY 265 mosm/kg (275-300); CALCIUM 8.5 mg/dL (8.5-10.1); CARBON DIOXIDE 25.3 mmol/L (21.0-32.0); CHLORIDE - SERUM 101 mmol/L (98-107); CREATININE - SERUM 0.7 mg/dL (0.6-1.3); GLUCOSE 96 mg/dL (74-106); MAGNESIUM - SERUM 1.8 mg/dL (1.8-2.4); POTASSIUM - SERUM 4.2 mmol/L (3.5-5.1); PROTEIN - SERUM 5.9 g/dL (6.4-8.2); SODIUM 134 mmol/L (136-145); VANCOMYCIN - RANDOM 7.9 ug/mL (10.0-20.0); eGFR NON AFRICAN AMERICAN 84 mL/min (90-120)
[2020-05-31 06:43] LABS: BASOPHILS 0.8 % (0-2); EOSINOPHILS 1.2 % (0-7); HEMATOCRIT 34.9 % (36.0-48.0); HEMOGLOBIN 11.5 g/dL (12-16); IMMATURE GRANULOCYTES 0.3 % (0-5); LYMPHOCYTES 20.4 % (15-50); MCH 27.6 pg (26.0-34.0); MCV 83.9 fL (80.0-100.0); MEAN PLATELET VOLUME 8.5 fL (7.4-10.4); MONOCYTES 10.3 % (2-11); RBC 4.16 10x6/uL (4.00-5.40); RDW 13.7 % (11.5-14.5)
[2020-05-31 06:44] LABS: UREA NITROGEN 7 mg/dL (7-18)
[2020-05-31 06:45] LABS: PLATELET COUNT 384 10x3/uL (130-400); WBC 7.7 10x3/uL (4.8-10.8)
[2020-05-31 09:07] VITALS: BP 137/67
[2020-05-31 12:42] VITALS: BP 143/87
[2020-05-31 13:46] VITALS: Ht 154.9 cm; Wt 47.2 kg
[2020-05-31 16:12] VITALS: BP 129/70
--- NOTE | 2020-05-31 18:45 | NUR ---
PATIENT IN BED WITH IV INTACT. NO COMPLAINTS OR SIGNS OF DISTRESS. BSCDS ON AND WORKING. CALL LIGHT WITHIN REACH.
[2020-05-31 20:00] VITALS: BP 143/77
--- NOTE | 2020-05-31 20:00 | NUR ---
PT SITTING UP IN BED WITHOUT DISTRESS, AOX4. IV RIGHT AC HARD TO FLUSH, LEAKING. REMOVED WITH CATH INTACT. RESITED 22G IV RIGHT UPPER ARM X1 ATTEMPT. SCDS ON BILAT. DENIES OTHER NEEDS AT THIS TIME. CL NI REACH, WILL CTM
[2020-06-01] VITALS: BP 117/53; BP 140/73
[2020-06-01 04:00] VITALS: BP 155/84
--- NOTE | 2020-06-01 07:22 | NUR ---
WALKING ROUNDS COMPLETE, PT LAYING IN BED WITH NO PAIN OR DISCOMFORT VOICED, IV SALINE LOCKED, TELE SECURE AND SHOWING NSR, DAUGHTER AT BEDSIDE, BED LOW AND LOCKED, CALL LIGHT IN REACH, BED LOW AND LOCKED, WILL CONTINUE TO MONITOR
[2020-06-01 07:51] LABS: BILIRUBIN - TOTAL 0.46 mg/dL (0.2-1.3); CALCIUM 9.2 mg/dL (8.5-10.1); CARBON DIOXIDE 25.8 mmol/L (21.0-32.0); CREATININE - SERUM 0.8 mg/dL (0.6-1.3); MAGNESIUM - SERUM 1.9 mg/dL (1.8-2.4); POTASSIUM - SERUM 3.8 mmol/L (3.5-5.1); PROTEIN - SERUM 6.9 g/dL (6.4-8.2); VANCOMYCIN - TROUGH 11.1 ug/mL (10.0-20.0)
--- NOTE | 2020-06-01 08:10 | NUR ---
PT TOOK AM MEDS, NO OTHER NEEDS VOICED, DAUGHTER AT BEDSIDE, CALL LIGHT IN REACH, WILL CONTINUE TO MONITOR
[2020-06-01 08:59] LABS: BASOPHILS 0.8 % (0-2); EOSINOPHILS 1.3 % (0-7); HEMATOCRIT 40.1 % (36.0-48.0); HEMOGLOBIN 13.3 g/dL (12-16); IMMATURE GRANULOCYTES 0.2 % (0-5); MCH 28.3 pg (26.0-34.0); MCHC 33.2 g/dL (31.0-37.0); MCV 85.3 fL (80.0-100.0); MEAN PLATELET VOLUME 8.6 fL (7.4-10.4); MONOCYTES 9.3 % (2-11); NEUTROPHILS 72.4 % (40-80); PLATELET COUNT 436 10x3/uL (130-400); RDW 13.9 % (11.5-14.5)
[2020-06-01 09:00] LABS: WBC 10.2 10x3/uL (4.8-10.8)
[2020-06-01 09:10] VITALS: BP 158/77
[2020-06-01 12:53] VITALS: BP 137/82
[2020-06-01 17:05] VITALS: BP 152/77
[2020-06-01 20:00] VITALS: BP 139/73
--- NOTE | 2020-06-01 20:00 | NUR ---
PT SITTING UP IN BED WITHOUT DISTRESS, AOX4. IV RIGHT UPPER ARM SWOLLEN AND RED. REMOVED WITH CATHETER INTACT. RESITED 22G IV TO RIGHT WRIST. DENIE OTHER NEEDS AT THIS TIME. CL IN REACH, WILL CTM
[2020-06-02] VITALS: BP 155/80
[2020-06-02 04:00] VITALS: BP 169/89
[2020-06-02 06:16] LABS: ALBUMIN 2.9 g/dL (3.4-5.0); ALKALINE PHOSPHATASE 59 U/L (30-120); ALT (SGPT) 20 U/L (10-68); CALC OSMOLALITY 269 mosm/kg (275-300); CARBON DIOXIDE 28.5 mmol/L (21.0-32.0); CHLORIDE - SERUM 102 mmol/L (98-107); CREATININE - SERUM 0.7 mg/dL (0.6-1.3); GLUCOSE 108 mg/dL (74-106); POTASSIUM - SERUM 3.7 mmol/L (3.5-5.1); PROTEIN - SERUM 7.3 g/dL (6.4-8.2); SODIUM 135 mmol/L (136-145); eGFR NON AFRICAN AMERICAN 84 mL/min (90-120)
[2020-06-02 06:21] LABS: UREA NITROGEN 10 mg/dL (7-18)
[2020-06-02 06:41] LABS: BASOPHILS 0.5 % (0-2); EOSINOPHILS 1.5 % (0-7); HEMOGLOBIN 14.2 g/dL (12-16); IMMATURE GRANULOCYTES 0.2 % (0-5); LYMPHOCYTES 20.1 % (15-50); MCV 84.6 fL (80.0-100.0); MEAN PLATELET VOLUME 8.7 fL (7.4-10.4); MONOCYTES 8.9 % (2-11); NEUTROPHILS 68.8 % (40-80); PLATELET COUNT 418 10x3/uL (130-400); RBC 5.08 10x6/uL (4.00-5.40); RDW 13.9 % (11.5-14.5); WBC 9.8 10x3/uL (4.8-10.8)
--- NOTE | 2020-06-02 07:55 | NUR ---
ALERT AND ORIENTED. LUNGS DIMINISHED TO BLL. HEART SOUNDS S1 AND S2 HEARD IN ALL WEN. BOWEL SOUNDS ACTIVE X 4. IV TO RFA PATENT WITHOUT REDNESS. BED LOW. CALL ANDREW AND PERSONAL ITEMS IN REACH. DAUGHTER AT BEDSIDE. WILL CONTINUE TO MONITOR.
[2020-06-02 09:36] VITALS: BP 154/79
--- NOTE | 2020-06-02 11:57 | NUR ---
PATIENT STATES RFA IV SITE BURNING. REDNESS AT INSERTION SITE BUT NO SWELLING. REMOVED WITH TIP INTACT. STATES DOES NOT WANT TO CONTINUE GETTING IVS. STATES IF NEED IV WANTS TO GET MIDLINE. WILL SPEAK WITH COMMUNICATIONS MARKETING INTERN.
--- NOTE | 2020-06-02 12:15 | NUR ---
SPOKE WITH ROMMEL GALLARDO ABOUT PATIENT NO IV ACCESS AND POSSIBLE MIDLINE. STATES TO ASK DR AMADO. DR AMADO PAGED.
--- NOTE | 2020-06-02 12:28 | NUR ---
SPOKE WITH DR AMADO WHO STATES OK TO LEAVE IV OUT AND GAVE ORDERS FOR PO ABX. VERBAL ORDERS PLACED.
[2020-06-02 12:51] VITALS: BP 112/70
--- NOTE | 2020-06-02 14:03 | NUR ---
Nutrition follow-up: Pt and daughter report appetite is improving. Pt ate ~75% average of last 3 regular meals Pt is not a big meat eater; drinking Ensure Labs reviewed WT: 104# RDN following.
[2020-06-02 17:53] VITALS: BP 139/73
[2020-06-02 20:00] VITALS: BP 129/78
--- NOTE | 2020-06-02 20:00 | NUR ---
PT SITTING UP IN BED WITHOUT DISTRESS, AOX4. NO COMPLAINTS AT THIS TIME. PROVIDED ICE WATER. GAVE HS MEDS. DENIES NEEDS AT THIS TIME. CL IN REACH, WILL CTM
--- NOTE | 2020-06-02 21:50 | NUR ---
PT REQUESTED AND GIVEN BLANKET OUT OF WARMER. LIGHTS TURNED OUT SO PT COULD GO TO SLEEP. NO OTHER NEEDS AT THIS TIME. CL IN REACH, WILL CTM
[2020-06-03] VITALS: BP 110/65
--- NOTE | 2020-06-03 00:26 | NUR ---
PT LYING IN BED SLEEPING QUIETLY, WILL CTM
[2020-06-03 04:00] VITALS: BP 133/60
--- NOTE | 2020-06-03 04:45 | NUR ---
PT REFUSED BREATHING TRX STATING SHE FELT A LITTLE NAUSEOUS BUT WOULD CALL IF SHE FELT SHE NEEDED ONE LATER
[2020-06-03 05:55] LABS: BASOPHILS 0.9 % (0-2); EOSINOPHILS 2.1 % (0-7); HEMATOCRIT 37.6 % (36.0-48.0); HEMOGLOBIN 12.2 g/dL (12-16); IMMATURE GRANULOCYTES 0.3 % (0-5); LYMPHOCYTES 18.3 % (15-50); MCH 27.5 pg (26.0-34.0); MCHC 32.4 g/dL (31.0-37.0); MCV 84.7 fL (80.0-100.0); MEAN PLATELET VOLUME 8.4 fL (7.4-10.4); MONOCYTES 10.3 % (2-11); NEUTROPHILS 68.1 % (40-80); PLATELET COUNT 387 10x3/uL (130-400); RBC 4.44 10x6/uL (4.00-5.40); RDW 14.1 % (11.5-14.5); WBC 7.7 10x3/uL (4.8-10.8)
[2020-06-03 06:46] LABS: ALBUMIN 2.6 g/dL (3.4-5.0); BILIRUBIN - TOTAL 0.41 mg/dL (0.2-1.3); CALCIUM 8.9 mg/dL (8.5-10.1); CARBON DIOXIDE 30.8 mmol/L (21.0-32.0); CREATININE - SERUM 0.8 mg/dL (0.6-1.3); MAGNESIUM - SERUM 1.7 mg/dL (1.8-2.4); POTASSIUM - SERUM 3.8 mmol/L (3.5-5.1); PROTEIN - SERUM 5.9 g/dL (6.4-8.2)
--- NOTE | 2020-06-03 07:53 | NUR ---
ALERT AND ORIENTED. LUNGS CLEAR BILATERALLY. HEART SOUNDS S1 AND S2 HEARD IN ALL WEN. BOWEL SOUNDS ACTIVE X 4. DENIES NEEDS. BED LOW. CALL ANDREW AND PERSONAL ITEMS IN REACH. WILL CONTINUE TO MONITOR.
[2020-06-03] MEDS ORDERED: OMNICEF300 MG PO (09:31)
[2020-06-03] MEDS ORDERED: VIBRAMYCIN 100100 MG PO (09:31)
[2020-06-03 09:43] VITALS: BP 116/67
--- NOTE | 2020-06-03 14:09 | MORECARE ---
CASE MANAGEMENT DISCHARGE SUMMARY PATIENT: GODWIN BIRD UNIT: [id number] ADM DATE: 05/30/20 AGE: 85 : 36 SEX: F ROOM/BED: D.2215 AUTHOR: ARTEMIODOC PHYSICIAN: REFERRING PHYSICIAN: MARY HORTA MD DATE OF SERVICE: 06/03/20 Discharge Plan Patient Name: GODWIN BIRD Facility: [facility]:[place] : 1935 Planned Disposition: Home with Home Health Anticipated Discharge Date: Discharge Date: Expected LOS: Initial Reviewer: [email or web address] Initial Review Date: 05/30/2020 Generated: 06/03/20 3:08 pm Comments DCP- Discharge Planning Updated by [email or web address]: Ambreen Cameron on 06/03/20 1:[address] Patient Name: GODWIN BIRD Admission Status: Elective Accout number: [id number] Admission Date: 05-30-2020 : 1935 Admission Diagnosis:SHORTNESS OF BREATH Attending: NANCY Current LOS: 4 Anticipated DC Date: Planned Disposition: Home with Home Health Primary Insurance: [employer] CHOICE PPO [facility] Discharge Planning Comments: CM met with patient to complete initial dc planning assessment. CM educated patient on the CM role and verbal consent given by patient to complete assessment. Patient lives at home with her brother in law where she is independent with her care per her daughter. At discharge patient plans to return home and feels this is a safe discharge. CM discussed availability of home health, rehab services, and medical equipment. Daughter states that she has a walker at home. 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 [facility] served and explained. Patient would like home health [facility] with [facility] . Patient denied known discharge needs at this time. CM will continue to follow and will assist as needed with dc plans/needs. Afloat Cryptologic Manager: Ambreen Cameron DCPIA - Discharge Planning Initial Assessment Updated by [email or web address]: Ambreen Cameron on 06/03/20 2:05 pm * Is the patient Alert and Oriented? Yes * How many steps to enter\exit or inside your home? * PCP GODWIN STEIN * Pharmacy [facility] * Preadmission Environment Home with Family * ADLs Independent * Equipment Rolling Walker * List name and contact numbers for known caregivers / representatives who currently or will assist patient after discharge: GODWIN GERMAN [phone] * Verbal permission to speak to the caregivers and representatives has been obtained from the patient. N/A * Community resources currently utilized None * Additional services required to return to the preadmission environment? Yes * Can the patient safely return to the preadmission environment? Yes * Has this patient been hospitalized within the prior 30 days at any hospital? No Patient Name: GODWIN BIRD Page [phone] at 1409 All edits/amendments must be made on the electronic document DICTATION DATE: 06/03/201407 HERBOLOGIST: CAMPOS 06/03/201407 RPT#: [id number] DC DATE: STATUS: ADM IN [facility] [address] [place] [address] END OF REPORT
--- NOTE | 2020-06-03 14:23 | MORECARE ---
CASE MANAGEMENT DISCHARGE SUMMARY PATIENT: GODWIN BIRD UNIT: [id number] ADM DATE: 05/30/20 AGE: 85 : 36 SEX: F ROOM/BED: D.2215 AUTHOR: ARTEMIODOC PHYSICIAN: REFERRING PHYSICIAN: MARY HORTA MD DATE OF SERVICE: 06/03/20 Discharge Plan Patient Name: GODWIN BIRD Facility: [facility]:[place] : 1935 Planned Disposition: Home with Home Health Anticipated Discharge Date: Discharge Date: Expected LOS: Initial Reviewer: [email or web address] Initial Review Date: 05/30/2020 Generated: 06/03/20 3:23 pm Comments DCP- Discharge Planning Updated by [email or web address]: Ambreen Cameron on 06/03/20 1:[address] Patient Name: GODWIN BIRD Admission Status: Elective Accout number: [id number] Admission Date: 05-30-2020 : 1935 Admission Diagnosis:SHORTNESS OF BREATH Attending: NANCY Current LOS: 4 Anticipated DC Date: Planned Disposition: Home with Home Health Primary Insurance: [employer] CHOICE PPO [facility] Discharge Planning Comments: CM met with patient to complete initial dc planning assessment. CM educated patient on the CM role and verbal consent given by patient to complete assessment. Patient lives at home with her brother in law where she is independent with her care per her daughter. At discharge patient plans to return home and feels this is a safe discharge. CM discussed availability of home health, rehab services, and medical equipment. Daughter states that she has a walker at home. 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 [facility] served and explained. Patient would like home health [facility] with [place] . Patient denied known discharge needs at this time. CM will continue to follow and will assist as needed with dc plans/needs. Jewel Hole Rough Opener: Ambreen Cameron DCPIA - Discharge Planning Initial Assessment Updated by [email or web address]: Ambreen Cameron on 06/03/20 2:05 pm * Is the patient Alert and Oriented? Yes * How many steps to enter\exit or inside your home? * PCP GODWIN STEIN * Pharmacy [facility] * Preadmission Environment Home with Family * ADLs Independent * Equipment Rolling Walker * List name and contact numbers for known caregivers / representatives who currently or will assist patient after discharge: GODWIN GERMAN [phone] * Verbal permission to speak to the caregivers and representatives has been obtained from the patient. N/A * Community resources currently utilized None * Additional services required to return to the preadmission environment? Yes * Can the patient safely return to the preadmission environment? Yes * Has this patient been hospitalized within the prior 30 days at any hospital? No External Providers External Provider: [facility] Next Contact Date: Service Request Date: Service Type: Resolution: Reviewer: Comments: Coverage Notice Reviewer: [email or web address] Jaguar Cameron Notice Issued Date-Time: 06/03/2020 14:00 Notice Type: IM Discharge Notice Notice Delivered To: Patient Relationship to Patient: Corn Grower Name: Delivery Method: HAND - Hand Delivered Deepthi Days: Prior Verbal Notification: Recipient Understood Notice: Yes Recipient Signature: Yes Med Rec Note Co-signed by Attending: Coverage Notice Comment: Reviewer: [id number] Cameron Notice Issued Date-Time: 06/03/2020 14:00 Notice Type: Patient Choice Letter Notice Delivered To: Patient Relationship to Patient: Corn Grower Name: Delivery Method: HAND - Hand Delivered Deepthi Days: Prior Verbal Notification: Recipient Understood Notice: Yes Recipient Signature: Yes Med Rec Note Co-signed by Attending: Coverage Notice Comment: [facility] Last DP export: 06/03/20 1:09 pm Patient Name: GODWIN BIRD Page [id number] at 1423 All edits/amendments must be made on the electronic document DICTATION DATE: 06/03/20 1423 DSP ENGINEER: CAMPOS 06/03/20 1423 RPT#: [id number] DC DATE: STATUS: ADM IN [facility] [address] [place] [address] END OF REPORT
--- NOTE | 2020-06-03 15:35 | NUR ---
DISCHARGE EDUCATION PROVIDED BOTH WRITTEN AND VERBAL. PATIENT STATES WANTS TO WAIT ON DAUGHTER TO SIGN PAPERWORK. STATES DAUGHTER ON WAY TO HOSPITAL.
--- NOTE | 2020-06-03 16:18 | NUR ---
WENT OVER DISCHARGE PAPERWORK AGAIN WITH PATIENT'S DAUGHTER IN ROOM PER REQUEST. DENIES FURTHER QUESTIONS. DAUGHTER SIGNED PAPERWORK PER PATIENT'S REQUEST. PATIENT DISCHARGED HOME WITH DAUGHTER WITH ALL BELONGINGS.
--- NOTE | 2020-06-04 12:57 | MORECARE ---
CASE MANAGEMENT DISCHARGE SUMMARY PATIENT: GODWIN BIRD UNIT: [id number] ADM DATE: 05/30/20 AGE: 85 : 36 SEX: F ROOM/BED: D.2215 AUTHOR: ARTEMIODOC PHYSICIAN: REFERRING PHYSICIAN: MARY HORTA MD DATE OF SERVICE: 06/04/20 Discharge Plan Patient Name: GODWIN BIRD Facility: [facility]:[place] : 1935 Planned Disposition: Home with Home Health Anticipated Discharge Date: Discharge Date: 06/03/2020 Expected LOS: Initial Reviewer: [email or web address] Initial Review Date: 05/30/2020 Generated: 06/04/20 1:56 pm Comments DCP- Discharge Planning Updated by [email or web address]: Ambreen Cameron on 06/03/20 1:[address] Patient Name: GODWIN BIRD Admission Status: Elective Accout number: [id number] Admission Date: 05-30-2020 : 1935 Admission Diagnosis:SHORTNESS OF BREATH Attending: NANCY Current LOS: 4 Anticipated DC Date: Planned Disposition: Home with Home Health Primary Insurance: HU[employer] CHOICE PPO [facility] Discharge Planning Comments: CM met with patient to complete initial dc planning assessment. CM educated patient on the CM role and verbal consent given by patient to complete assessment. Patient lives at home with her brother in law where she is independent with her care per her daughter. At discharge patient plans to return home and feels this is a safe discharge. CM discussed availability of home health, rehab services, and medical equipment. Daughter states that she has a walker at home. 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 [facility] served and explained. Patient would like home health [facility] with [facility] . Patient denied known discharge needs at this time. CM will continue to follow and will assist as needed with dc plans/needs. Hiv/Aids Care Nurse: Ambreen Cameron DCPIA - Discharge Planning Initial Assessment Updated by [email or web address]: Ambreen Cameron on 06/03/20 2:05 pm * Is the patient Alert and Oriented? Yes * How many steps to enter\exit or inside your home? * PCP GODWIN STEIN * [facility] [address] * Preadmission Environment Home with Family * ADLs Independent * Equipment Rolling Walker * List name and contact numbers for known caregivers / representatives who currently or will assist patient after discharge: GODWIN GERMAN [phone] * Verbal permission to speak to the caregivers and representatives has been obtained from the patient. N/A * Community resources currently utilized None * Additional services required to return to the preadmission environment? Yes * Can the patient safely return to the preadmission environment? Yes * Has this patient been hospitalized within the prior 30 days at any hospital? No Coverage Notice Reviewer: [email or web address] Cameron Notice Issued Date-Time: 06/03/2020 14:00 Notice Type: IM Discharge Notice Notice Delivered To: Patient Relationship to Patient: Cold Patcher Name: Delivery Method: HAND - Hand Delivered Deepthi Days: Prior Verbal Notification: Recipient Understood Notice: Yes Recipient Signature: Yes Med Rec Note Co-signed by Attending: Coverage Notice Comment: Reviewer: [id number] Cameron Notice Issued Date-Time: 06/03/2020 14:00 Notice Type: Patient Choice Letter Notice Delivered To: Patient Relationship to Patient: Cold Patcher Name: Delivery Method: HAND - Hand Delivered Deepthi Days: Prior Verbal Notification: Recipient Understood Notice: Yes Recipient Signature: Yes Med Rec Note Co-signed by Attending: Coverage Notice Comment: [facility] H[facility]ad DP export: 06/03/20 1:23 pm Patient Name: GODWIN BIRD Page 18534 at 1257 All edits/amendments must be made on the electronic document DICTATION DATE: 06/04/20 1256 DEAD MAIL CHECKER: CAMPOS 06/04/20 1256 RPT#: [id number] DC DATE:06/03/20 STATUS: DIS IN [facility] [address] [place] [address] END OF REPORT
== END 2020-06-03 16:19 | disposition home health service (06) | DRG 191 ==
LOC: D.MS 15:57
PROVIDERS: Family Medicine; Internal Medicine Pulmonary Disease; ADMIT Family Medicine; ATTEND Family Medicine
DX: J47.0 Bronchiectasis with acute lower respiratory infection (principal); E87.1 Hypo-osmolality and hyponatremia; R04.2 Hemoptysis; J98.11 Atelectasis; J18.9 Pneumonia, unspecified organism; E78.5 Hyperlipidemia, unspecified; I25.10 Atherosclerotic heart disease of native coronary artery without angina pectoris; I71.4 Abdominal aortic aneurysm, without rupture; K21.9 Gastro-esophageal reflux disease without esophagitis; M19.90 Unspecified osteoarthritis, unspecified site; D64.9 Anemia, unspecified; I08.1 Rheumatic disorders of both mitral and tricuspid valves; Z85.3 Personal history of malignant neoplasm of breast; Z85.118 Personal history of other malignant neoplasm of bronchus and lung; Z86.73 Personal history of transient ischemic attack (TIA), and cerebral infarction without residual deficits

== ENCOUNTER 2020-07-06 08:00 | Outpatient (CLI) | payer MEDICARE ==
[2020-05-31 13:46] VITALS: BMI 19.6
[~2020-07-06 08:00] MED LIST changes: +ALENDRONAT70 MG/75 M PO; +GABAPENTIN100 MG PO; +VIBRAMYCIN 100100 MG PO
== END 2020-07-06 08:01 | disposition home or self-care (01) ==
LOC: D.RAD 08:00
PROVIDERS: ATTEND Internal Medicine Pulmonary Disease
DX: J44.9 Chronic obstructive pulmonary disease, unspecified (principal)

== ENCOUNTER → 2020-08-12 10:28 | Outpatient (CLI) | payer MEDICARE ==
[2020-05-31 13:46] VITALS: BMI 19.6
== END | disposition home or self-care (01) ==
LOC: D.HCCECHO 10:28
PROVIDERS: ATTEND Internal Medicine Cardiovascular Disease
DX: I71.2 Thoracic aortic aneurysm, without rupture (principal); I25.10 Atherosclerotic heart disease of native coronary artery without angina pectoris

== ENCOUNTER 2021-04-10 08:37 | Observation (INO) | payer MEDICARE ==
[~2021-04-10] VITALS: Ht 154.9 cm; Wt 45.0 kg
[2021-04-10 09:11] VITALS: BP 148/68
[2021-04-10] MEDS ORDERED: GABAPENTIN100 MG (09:17)
[2021-04-10 09:25] LABS: BASOPHILS 0.7 % (0-2); EOSINOPHILS 1.1 % (0-7); HEMATOCRIT 43.2 % (36.0-48.0); HEMOGLOBIN 14.3 g/dL (12-16); LYMPHOCYTES 16.9 % (15-50); MCH 27.5 pg (26.0-34.0); MCHC 33.1 g/dL (31.0-37.0); MCV 83.3 fL (80.0-100.0); MEAN PLATELET VOLUME 6.7 fL (7.4-10.4); MONOCYTES 8.2 % (2-11); NEUTROPHILS 73.1 % (40-80); PLATELET COUNT 413 10x3/uL (130-400); RBC 5.19 10x6/uL (4.00-5.40); RDW 15.2 % (11.5-14.5); WBC 10.8 10x3/uL (4.8-10.8)
[2021-04-10 09:30] LABS: CALC OSMOLALITY 270 mosm/kg (275-300); CALCIUM 8.6 mg/dL (8.5-10.1); CARBON DIOXIDE 30.6 mmol/L (21.0-32.0); CHLORIDE - SERUM 99 mmol/L (98-107); CREATININE - SERUM 0.7 mg/dL (0.6-1.3); GLUCOSE 107 mg/dL (74-106); SODIUM 135 mmol/L (136-145); UREA NITROGEN 14 mg/dL (7-18); eGFR NON AFRICAN AMERICAN 84 mL/min (90-120)
[2021-04-10 09:47] LABS: ALBUMIN 3.3 g/dL (3.4-5.0); ALKALINE PHOSPHATASE 69 U/L (30-120); ALT (SGPT) 27 U/L (10-68); CKMB 2.4 U/L (0.0-3.6); CREATINE KINASE 64 UL (21-215); MAGNESIUM - SERUM 2.1 mg/dL (1.8-2.4); PROTEIN - SERUM 7.4 g/dL (6.4-8.2)
[2021-04-10 09:49] LABS: TROPONIN-I < 0.017 ng/mL (0.000-0.060)
[2021-04-10 10:06] LABS: INR 1.11 (0.85-1.17); PROTIME 13.3 SECONDS (11.6-15.0)
[2021-04-10 13:59] LABS: CKMB 1.8 U/L (0.0-3.6); CREATINE KINASE 48 UL (21-215)
[2021-04-10 14:00] LABS: TROPONIN-I < 0.017 ng/mL (0.000-0.060)
--- NOTE | 2021-04-10 15:31 | NUR ---
REPORT CALLED TO ALCIRA ANTHONY
[2021-04-10 15:54] VITALS: BP 132/62
[2021-04-10 16:08] VITALS: BP 132/62; Ht 154.9 cm; Wt 45.0 kg
--- NOTE | 2021-04-10 19:30 | NUR ---
PT IN BED, EYES CLOSED, RESP EVEN AND UNLABORED, NO DISTRESS NOTED, CL IN REACH, SR UP X 2.
[2021-04-10 20:00] VITALS: BP 118/52
[2021-04-10 20:12] LABS: CKMB 1.7 U/L (0.0-3.6); CREATINE KINASE 47 UL (21-215)
[2021-04-10 20:35] LABS: TROPONIN-I < 0.017 ng/mL (0.000-0.060)
[2021-04-11] VITALS: BP 105/60
--- NOTE | 2021-04-11 03:53 | NUR ---
I have reviewed this patient and I concur with the Shift Assessment completed by the Licensed Practical Nurse today this shift.
[2021-04-11 04:00] VITALS: BP 118/76
[2021-04-11 06:12] LABS: BASOPHILS 1.4 % (0-2); HEMATOCRIT 36.9 % (36.0-48.0); HEMOGLOBIN 12.2 g/dL (12-16); LYMPHOCYTES 19.6 % (15-50); MCH 27.5 pg (26.0-34.0); MCV 83.4 fL (80.0-100.0); MONOCYTES 11.5 % (2-11); NEUTROPHILS 65.5 % (40-80); PLATELET COUNT 367 10x3/uL (130-400); RBC 4.42 10x6/uL (4.00-5.40); RDW 14.9 % (11.5-14.5)
[2021-04-11 06:35] LABS: WBC 7.8 10x3/uL (4.8-10.8)
[2021-04-11 06:38] LABS: ALBUMIN 2.6 g/dL (3.4-5.0); ALKALINE PHOSPHATASE 50 U/L (30-120); ALT (SGPT) 23 U/L (10-68); BILIRUBIN - TOTAL 0.52 mg/dL (0.2-1.3); CALC OSMOLALITY 270 mosm/kg (275-300); CALCIUM 8.2 mg/dL (8.5-10.1); CARBON DIOXIDE 28.5 mmol/L (21.0-32.0); CHLORIDE - SERUM 102 mmol/L (98-107); CREATININE - SERUM 0.7 mg/dL (0.6-1.3); GLUCOSE 86 mg/dL (74-106); POTASSIUM - SERUM 3.9 mmol/L (3.5-5.1); SODIUM 136 mmol/L (136-145); UREA NITROGEN 13 mg/dL (7-18); eGFR NON AFRICAN AMERICAN 84 mL/min (90-120)
[2021-04-11 08:00] VITALS: BP 108/64
--- NOTE | 2021-04-11 08:55 | NUR ---
ELEVATED DDIMER REPORTED TO JOSE DE LEON , NO NEW ORDERS. STATES SHE HAS HAD A CT SCAN.
[2021-04-11 12:00] VITALS: BP 96/54
--- NOTE | 2021-04-11 15:10 | NUR ---
NURSE REVIEWS DC INSTRUCTIONS AT THIS TIME, IV REMOVED WITH CATH TIP INTACT. PATIENT'S DAUGHTER LISTENS TO INSTRUCTIONS WITH PATIENT. WAITING FOR RIDE TO GO HOME.
--- NOTE | 2021-04-11 15:35 | NUR ---
NURSE WHEELS PATIENT OUTSIDE TO PRIVATE VEHICLE. PATIENT SHOWS NO S/S OF DISTRESS. PATIENT HAS DAUGHTER AT SIDE. PAPERWORK IN HAND.
== END 2021-04-11 15:35 | disposition home or self-care (01) ==
LOC: D.ER 08:37 → OBSVTIME 12:30 → D.M2 12:30
PROVIDERS: Emergency Medicine; Family Medicine; ADMIT Family Medicine; ATTEND Family Medicine
DX: I25.110 Atherosclerotic heart disease of native coronary artery with unstable angina pectoris (principal); J44.9 Chronic obstructive pulmonary disease, unspecified; Z86.73 Personal history of transient ischemic attack (TIA), and cerebral infarction without residual deficits; K21.9 Gastro-esophageal reflux disease without esophagitis; I10 Essential (primary) hypertension; I35.0 Nonrheumatic aortic (valve) stenosis; E87.1 Hypo-osmolality and hyponatremia; E78.5 Hyperlipidemia, unspecified; M19.90 Unspecified osteoarthritis, unspecified site